=== PATIENT | male | born 1975 | race Caucasian/White ===

== ENCOUNTER 2020-05-05 13:12 | Day surgery (SDC) | payer BC, MEDICAID, SELFPAY ==
[2020-05-05] VITALS (8 sets, daily range): BP systolic 120–153; BP diastolic 61–87; PULSE 61–75; RESP 16; TEMP 36.3–36.6; O2SAT 96–99; BMI 51.8
[2020-05-05] MEDS: Lactated Ringers 1,000 ML 100 ML IV (13:44)
[2020-05-05 13:56] LABS: Bedside Glucose 107 mg/dL (70-110)
--- NOTE | 2020-05-05 14:02 | HP.PCM_ITS ---
History and Physical Date of Admission: 05/05/20 HISTORY AND PHYSICAL ? Jeremy Lopez 1975 ? ? REFERRING PHYSICIAN: Kate Serrano (Latasha), MANAGER [employer]ATIONAL.* ? CHIEF COMPLAINT: No chief complaint on file. ? HPI: The patient is a 44 year old male presents with complaint of rectal bleeding and diarrhea. He states that he has had bright red blood - rectal bleeding - for over 20 years. However, more recently in past several weeks, it has become increased in frequency and amount. He denies having hard stools. He usually notes loose stools. He does admit to straining - feels like that he has incomplete emptying of his rectum and therefore strains to empty it. He denies prolonged sitting on the toilet. He also notes occasional lower abdominal cramping pain. He states that he had a colonoscopy in the , does not know the results, except that he was told he had a fissure He notes no colon cancer the family. ? ? PAST MEDICAL HISTORY ? Anxiety ? ? CSA (central sleep apnea) ? ? [facility] ? Diabetes (HCC) ? ? LUCIA (obstructive sleep apnea) ? ? [facility] ? PAST SURGICAL HISTORY ? NONE ? Current Outpatient Medications ? omeprazole (PRILOSEC) 20 mg capsule Take 1 capsule by mouth daily before breakfast. 1/2 hr before meal. ? buPROPion XL (WELLBUTRIN XL) 300 mg 24 hr tablet Take 1 tablet by mouth once daily. ? metFORMIN ER (GLUCOPHAGE XR) 500 mg 24 hr tablet Take 4 tablets by mouth daily with dinner. ? Tadalafil (CIALIS) 20 mg tab(s) Take 1 tablet by mouth as needed. ? dulaglutide (TRULICITY) 1.5 mg/0.5 mL Inject 1.5 mg subcutaneously one time a week. Inject once per week. Discard Pen After ? blood sugar diagnostic (BLOOD GLUCOSE TEST) test strip Test blood sugar(s) three times daily. Dx: Type 2 DM - Uncontrolled E11.65 Insulin: No ? lisinopril 2.5 mg tablet Take 1 tablet by mouth once daily. ? sertraline (ZOLOFT) 50 mg tablet Take 1 tablet by mouth once daily. Take 1/2 tab once a day orally for one week then 1 tab once a day ? BIPAP 1 Device by MISCELLANEOUS route daily at bedtime. 14 / 8 CM H2O with back up rate 12, humidification, with a 20 min ramp, chin strap, suitable mask for pt preference. Lifetime supplies. G47.33 LUCIA ? Lancets lancets Test blood sugar(s) bid times daily. Dx: Type 2 DM - Uncontrolled E11.65 Insulin: No ? ? ALLERGIES: Bees, Effexor [Venlafaxine Hcl], and Toradol [Ketorolac Tromethamine] ? PERSONAL HISTORY: Social History Tobacco Use ? Smoking status: Never Smoker ? Smokeless tobacco: Never Used ? Tobacco comment: smokes Substance Use Topics ? Alcohol use: No ? Drug use: No ? FAMILY HISTORY Problem Relation Age of Onset ? Diabetes Mother ? ? Hypertension Mother ? ? Diabetes Father ? ? Hypertension Father ? ? ? REVIEW OF SYSTEMS: General - denies fevers, denies anorexia, denies weight loss Cardiovascular - denies chest pain, denies history of [place] Pulmonary - has shortness of breath with exertion, denies coughing up blood Gastrointestinal - see HPI Neurological - denies seizures, denies chronic numbness/weakness of extremities Genitourinary - denies burning with urination, denies blood in urine Hematological - denies spontaneous/prolonged bleeding Skin - denies nonhealing skin wounds Musculoskeletal - no new muscle/bone pain Endocrine - has diabetes, no thyroid problems Psychological ? denies hallucinations ? PHYSICAL EXAMINATION: General: The patient is 44 year old male, well nourished, well hydrated in no acute distress. The patient is oriented to time, place, and person. VITALS: Pulse 98, temperature 36.9 ?C (98.5 ?F), Ht: 5'7 weight (!) 154.9 kg (341 lb 9.6 oz), SpO2 100 %. Body mass index is 51.95 kg/m?. ? Head ? Normocephalic. EOM intact with sclera clear and no icterus noted. Mouth with mucus membranes moist. Neck - supple with no jugular venous distention noted. Trachea is midline. Lungs ? clear to auscultation. Normal breath sounds. No rales/rhonchi/wheezing noted. No labored breathing noted, such as retractions. No cough heard. Heart ? normal S1 and S2 auscultated. No rubs/clicks/murmurs noted. Regular rate. Abdomen ? soft and benign. Normal bowel sounds. No abdominal bruits noted. Difficult to determine if any masses or organomegaly due to body habitus. Extremities ? no calf tenderness noted. No pitting edema noted. Skin ? normal skin integrity. Neurological ? gait normal, no focal deficits noted. Psych ? calm and appropriate ? ? IMPRESSION: rectal bleeding and diarrhea ? PLAN: I have discussed the above with the patient. I have discussed the above with the patient. I have offered colonoscopy, possible biopsies I have explained the procedure to the patient. I have counseled the patient as to the risks of the procedure, including but not limited to: infection, bleeding, injury to any intrabdominal organs such as liver/spleen, perforation of the GI tract, inability to complete the procedure, complications of anesthesia, etc. ? the patient understands. ? The patient was offered a surgery/procedure. The provider and patient have discussed in detail the risk of exposure to and/or potential harm posed by the COVID-19 virus with having a surgery/procedure at this time versus the risk of? delaying the surgery/procedure. It is not possible to know either the risk of delaying the surgery or procedure or chance of getting an infection with perfect accuracy, but a joint decision was made between the patient and the provider ?to proceed at this time with the scheduled surgery/procedure. ? The patient wishes to proceed. I have answered all questions to the patient?s satisfaction and the patient has no further questions. ? . Diagnoses: (K62.5) Rectal bleeding (primary encounter diagnosis) (R19.7) Diarrhea, unspecified type (E66.01) Morbid obesity (HCC) Return to Clinic: The patient is instructed to follow-up with me after the procedure as per needed. ? Kaity Castorena MD
--- NOTE | 2020-05-05 14:30 | COLBX_PTH ---
PATIENT: LOUISA AMOR LOC: EN U#:[id number] AGE/SX: 44/M ROOM: RE05/05/[address]: Dr. Kaity Castorena MD : 1975 BED: DIS: 05/05/2020 SPEC #: [id number] RECD: 05/05/20 15:13 STATUS: BETTYE REQ #: [id number] VÍCTOR: 05/05/20 14:[address]: Kaity Castorena DEPT: SURGICAL PATHOLOGY RECD BY: Wendy Page ENTERED: 05/08/20 08:35 SP TYPE: COLON BX OTHR DR: Dr. Ren Arce MD Tissues: A - COLON BIOPSY B - Rectum, NOS C - Rectum, NOS Procedures: Surgery Specimen Level IV HEADER OPERATION: Colonoscopy (MAC) PRE-OP DIAGNOSIS: Rectal bleeding and diarrhea TISSUE SUBMITTED: A - Random colonic biopsies, B - Rectal polyp, C - Proximal rectum mucosa biopsy MICROSCOPIC DIAGNOSIS A. Colon, random biopsy: Fragments of colonic mucosa, no pathologic diagnosis. B. Rectal polyp, biopsy: Fragments of tubular adenoma. Fragments of fecal material. C. Proximal rectal mucosa, biopsy: A fragment of colonic mucosa with focal acute colitis. See microscopic description and comment. SJ:roscoe 05/09/2020 COMMENT Correlation with clinical, endoscopic findings and appropriate follow up are necessary. This case has been reviewed in consultation with Dr. Romero who concurs with the above diagnosis. MICROSCOPIC DESCRIPTION Slides are reviewed. C. The specimen shows a fragment of colonic mucosa with prominent lymphoid aggregates and acute inflammatory infiltrates in the lamina propria, minimal glandular distortion and cryptitis. Crypt abscesses and granulomas are not seen. GROSS DESCRIPTION A - Received in fixative is one container labeled with the patient's name and designated random colonic biopsy. The specimen consists of multiple irregular fragments of light mcconnell soft tissue that in aggregate measure 1.5 x 1 x 0.1 cm. The specimen is totally submitted in one cassette. B - Received in fixative is one container labeled with the patient's name and designated rectal polyp. The specimen consists of two mcconnell-pink polyps measuring 0.7 x 0.7 x 0.4 cm and 0.7 x 0.7 x 0.4 cm. Also present in the container are multiple fragments of mcconnell soft tissue measuring in aggregate 1.5 x 0.5 x 0.1 cm. The entire specimen is submitted in one cassette. C - Received in fixative is one container labeled with the patient's name and designated proximal rectum mucosa. The specimen consists of one irregular fragment of light mcconnell soft tissue that measures 0.3 x 0.3 x 0.1 cm. The specimen is totally submitted in one cassette. / SJ:rg 05/08/20 TC:1 CPT: 86287 x3
--- NOTE | 2020-05-05 15:14 | OP.COLON_ITS ---
Patient Name: Jeremy Lopez Procedure Date: 05/05/2020 2:10 PM Date of : 1975 Age: 44 Procedure: Colonoscopy Indications: Clinically significant diarrhea of unexplained origin, Rectal bleeding Providers: Kaity Castorena MD Referring MD: Ren Arce Medicines: See the Anesthesia note for documentation of the administered medications Patient Profile: Refer to note in patient chart for documentation of history and physical. Last Colonoscopy: none. The patient's first colonoscopy is today. Complications: No immediate complications. Estimated blood loss: Minimal. Procedure: Pre-Anesthesia Assessment: - see anesthesia note After I obtained informed consent, the scope was passed under direct vision. Throughout the procedure, the patient's blood pressure, pulse, and oxygen saturations were monitored continuously. The Colonoscope was introduced through the anus and advanced to the cecum, identified by the appendiceal orifice, ileocecal valve and palpation. The colonoscopy was performed without difficulty. The patient tolerated the procedure well. The quality of the bowel preparation was poor, there was still retained fecal material. Therefore lavage and aspiration was done to clear the fecal material. This took some time. The gonzalez were cleared adequately. Scope In: 2:24:54 PM Scope Withdrawal Time 0 hours 26 minutes 5 seconds Scope Out: 2:58:01 PM Total Procedure Duration Time 0 hours 33 minutes 7 seconds Findings: The perianal and digital rectal examinations were normal. Two semi-pedunculated polyps were found in the proximal rectum. The polyps were 5 to 15 mm in size. These polyps were removed with a hot snare. Resection and retrieval were complete. Verification of patient identification for the specimen was done by the nurse. Estimated blood loss was minimal. A localized area of moderately hemorrhagic and nodular mucosa was found in the rectum. Biopsies were taken with a cold forceps for histology. Verification of patient identification for the specimen was done by the nurse. Estimated blood loss was minimal. Impression: - Two 5 to 15 mm polyps in the rectum, removed with a hot snare. Resected and retrieved. - Hemorrhagic and nodular mucosa in the rectum. Biopsied. Recommendation: - Discharge patient to home (ambulatory). - Resume previous diet. - Continue present medications. - Await pathology results. - Can contact my office for a televisit to discuss pathology results in 1-2 weeks - Repeat colonoscopy is recommended for surveillance. The colonoscopy date will be determined after pathology results from today's exam become available for review. Procedure Code(s): --- Professional --- 63529, Colonoscopy, flexible; with removal of tumor(s), polyp(s), or other lesion(s) by snare technique 46307, 59, Colonoscopy, flexible; with biopsy, single or multiple Diagnosis Code(s): --- Professional --- K62.1, Rectal polyp K62.5, Hemorrhage of anus and rectum K62.89, Other specified diseases of anus and rectum R19.7, Diarrhea, unspecified CPT copyright 2017 [employer]. All rights reserved. The codes documented in this report are preliminary and upon medical coder review may be revised to meet current compliance requirements. MD Kaity Bower MD 05/05/2020 3:14:21 PM This report has been signed electronically. Number of Addenda: 0 Note Initiated On: 05/05/2020 2:10 PM
--- NOTE | 2020-05-05 15:15 | OP.CCLET_ITS ---
05/05/2020 Ren Arce Re : Colonoscopy procedure for Jeremy Benton Claude This procedure was performed on Tuesday, May 05, 2020. My impressions and recommendations are as follows: Impressions : - Two 5 to 15 mm polyps in the rectum, removed with a hot snare. Resected and retrieved. - Hemorrhagic and nodular mucosa in the rectum. Biopsied. Recommendations : - Discharge patient to home (ambulatory). - Resume previous diet. - Continue present medications. - Await pathology results. - Can contact my office for a televisit to discuss pathology results in 1-2 weeks - Repeat colonoscopy is recommended for surveillance. The colonoscopy date will be determined after pathology results from today's exam become available for review. My findings are described in the full procedure note, which is enclosed. If I can be of further assistance, please feel free to contact me at Doctor phone number(s): , Work: . Sincerely, MD Kaity Bower MD 05/05/2020 3:14:21 PM This report has been signed electronically.
== END 2020-05-05 16:13 | disposition home or self-care (01) ==
LOC: EN 13:13 → AC 13:13
PROVIDERS: PCP Family Medicine; Referring Provider Family Medicine; Visit Provider Surgery
PROC: 0DJD8ZZ Inspection of Lower Intestinal Tract, Via Natural or Artificial Opening Endoscopic (ICD-10-PCS; CPT 45378; principal; 2020-05-05 14:25)
DX: D12.8 Benign neoplasm of rectum (principal); R19.7 Diarrhea, unspecified; E11.65 Type 2 diabetes mellitus with hyperglycemia; G47.33 Obstructive sleep apnea (adult) (pediatric); G47.31 Primary central sleep apnea; Z20.822 Contact with and (suspected) exposure to COVID-19; K21.9 Gastro-esophageal reflux disease without esophagitis; F32.9 Major depressive disorder, single episode, unspecified; F41.9 Anxiety disorder, unspecified; E66.01 Morbid (severe) obesity due to excess calories; Z68.43 Body mass index [BMI] 50.0-59.9, adult; Z79.84 Long term (current) use of oral hypoglycemic drugs; Z79.899 Other long term (current) drug therapy
CPT/HCPCS: 45380; 45385; 82962; 87426; 88305; C9803; J7120; J2405

== ENCOUNTER 2022-01-05 01:14 | Emergency (ER) | payer MEDICAID, SELFPAY ==
[2022-01-05 01:14] VITALS: BP 141/73; PULSE 88; RESP 16; TEMP 36.9; O2SAT 94; BMI 48.6
--- NOTE | 2022-01-05 02:43 | EX.ED.DYSGE1 ---
HPI History of Present Illness Chief Complaint: Itching Narrative Narrative: Patient is a 46-year-old male who states about 2 to 3 weeks ago he began getting a pruritic rash across his body. He states he went to an urgent care and was placed on prednisone and this resolved the rash. He states it was gone for approximately 1 week and then began returning yesterday. He states he cannot sleep secondary to the persistent itch. He denies any new exposure and states no one else at home has the rash. He denies any trouble breathing or swallowing but secondary to the return of the rash and his inability to sleep from it he presents for evaluation [facility] Home Medications metformin 500 mg tablet 2,000 mg PO DAILY 08/30/16 [History Last Taken Unknown] bupropion HCl 300 mg 24 hr tablet, extended release 300 mg PO DAILY 04/26/20 [History Last Taken Unknown] dulaglutide 1.5 mg/0.5 mL subcutaneous pen injector 1.5 mg SQ [place] 04/26/20 [History Last Taken Unknown] prednisone 10 mg tablet 10 mg PO DAILY #45 tabs 01/05/22 [Rx Last Taken Unknown] prednisone 10 mg tablet 10 mg PO DAILY #45 tabs 01/05/22 [Rx Last Taken Unknown] Allergy/AdvReac Type Severity Reaction Status Date / Time venom-honey bee Allergy Severe Anaphylaxis Verified 09/21/21 14:32 ketorolac tromethamine AdvReac Other Verified 04/26/20 12:06 [From Toradol] Social History Smoking Status: Never smoker [facility] ED Constitutional Constitutional ED: Denies chills or fever(s) Eyes Eyes: Denies change in vision ENT ENT ED: Denies sore throat Cardiovascular Cardiovascular: Denies chest pain Respiratory/Chest Respiratory/Chest: Denies cough or dyspnea Gastrointestinal Gastrointestinal: Denies abdominal pain, diarrhea, nausea or vomiting Genitourinary Genitourinary ED: Denies dysuria Musculoskeletal Musculoskeletal: Denies myalgias Integumentary Reports rash Neurologic Neurologic: Denies headache(s) Hematologic/Lymphatic Hematologic/Lymphatic: Denies easy bleeding or easy bruising EXAM Physical Exam Const Vital Signs: 01/05/22 01:14 01/05/22 03:00 Temperature 98.4 F Temperature Source Temporal Pulse Rate 88 87 Respiratory Rate 16 18 Blood Pressure 141/73 H Blood Pressure Mean 95 Pulse Ox 94 100 Oxygen Delivery Method Room Air Positive well nourished and well developed General Appearance ED: well developed HEENT Reports moist mucous membranes HEENT Narrative: No tongue or lip swelling no oral lesions no airway edema or compromise Eyes PERRL and EOMs intact bilaterally Neck supple Resp normal respiratory effort and clear to auscultation bilaterally Cardio regular rate and regular rhythm Extremity normal to inspection Neuro oriented x3 and CN's II-XII intact bilaterally Sensorium / Orientation: alert Psych mental status grossly normal Skin Skin Narrative: Patient has erythematous blanchable urticaria and vesicular lesions to his legs arms chest back and head most consistent with systemic allergic reaction. No involvement of the palms and soles. No secondary changes to suggest infection MDM MDM MDM Narrative Medical decision making narrative: Patient presented to the ER in no acute respiratory distress. He denied any new known exposures but he is only 1 at the house with the rash and it has been recurrent in nature. I do not feel this is an infectious rash for more an inflammatory rash and that he is most likely being reexposed to it over the allergic trigger is. He was advised to go through his belongings at home to search for possible exposure but at this time he will be given a 15-day course of prednisone taper to control symptoms but as he has no signs of distress or systemic infection can be discharged home. Discharge Plan Triage Chief Complaint: Itching ED Provider: Zurdo Bolton Dx/Rx/DC Orders Clinical Impression: Allergic reaction Instructions: Allergy Overview Prescriptions: New prednisone 10 mg tablet 10 mg PO DAILY Qty: 45 0RF Rx Instructions: 5 pills by mouth days 1 through 3 4 pills by mouth days 4 through 6 3 pills by mouth days 7 through 9 2 pills by mouth days 10 through 12 1 pill by mouth days 13 through 15 prednisone 10 mg tablet 10 mg PO DAILY Qty: 45 0RF Rx Instructions: 5 pills by mouth days 1 through 3 4 pills by mouth days 4 through 6 3 pills by mouth days 7 through 9 2 pills by mouth days 10 through 12 1 pill by mouth days through 15 No Action metformin 500 MG tablet 2,000 mg PO DAILY Label Comments: Take 1 tablet by mouth daily with breakfast.. bupropion HCl 300 MG tablet extended release 24 hr 300 mg PO DAILY dulaglutide 1.5 MG/0.5 ML pen injector 1.5 mg SQ [place] Primary Care Provider: Ren Arce Referrals: Ren Arce MD [Primary Care Provider] - Activity Restrictions/Additional Instructions: Please talk to your family doctor about a preschool teacher aide referral as I feel your rash is allergic/inflammatory in nature. If you have any further concerns or difficulty breathing please return to the ER for repeat evaluation Disposition Disposition: Home, Self Care Discharge Date/Time: 01/05/22 03:29
[2022-01-05] MEDS: Triamcinolone Acetonide 40 MG/ML Vial 80 MG IM (02:53)
[2022-01-05 03:00] VITALS: PULSE 87; RESP 18; O2SAT 100
== END 2022-01-05 03:29 | disposition home or self-care (01) ==
PROVIDERS: Emergency Provider Emergency Medicine; PCP Family Medicine; Visit Provider Emergency Medicine
DX: T78.40XA Allergy, unspecified, initial encounter (principal); Z79.84 Long term (current) use of oral hypoglycemic drugs; Z79.899 Other long term (current) drug therapy
CPT/HCPCS: 96372; 99283

== ENCOUNTER 2022-12-20 18:20 | Emergency (ER) | payer MEDICAID, SELFPAY ==
[2022-12-20 18:21] VITALS: BP 144/85; PULSE 88; RESP 18; TEMP 35.8; O2SAT 97; BMI 47.8
[2022-12-20 18:45] LABS: Bacteria 0 SEEN /hpf (None Seen); Mucous, Urine 0 SEEN /hpf (<or=2+); Squamous Epithelial Cells - UA 0 SEEN /hpf (0-5)
[2022-12-20 18:46] LABS: Absolute Lymphocyte Count 3.08 X10^3/uL (0.83-4.51); Absolute Neutrophil Count 6.4 X10^3/uL (2.0-7.7); Basophil# 0.11 X10^3/uL; Eosinophil# 0.51 X10^3/uL; Eosinophils% 4.7 % (0-5); Hematocrit 45.3 % (40-54); Hemoglobin 15.5 g/dL (13.0-16.5); Lymphocyte # 3.08 X10^3/ul (0.83-4.51); Lymphocyte % 28.1 % (19-41); Mean Corp Hgb Conc 34.2 g/dL (32-36); Mean Corpuscular Hgb 28.9 pg (27.0-32.0); Mean Corpuscular Volume 84.5 fL (80-94); Monocyte# 0.85 X10^3/uL; Monocyte% 7.8 % (0-10); NRBC Flagged by Analyzer 0 % (0-5); Neutrophil # 6.35 X10^3/uL (2.7-7.7); Neutrophil % 57.9 % (47-70); Platelet Count 291 K/mm3 (150-450); RBC Distribution Width CV 12.4 % (11.6-14.6); RBC Distribution Width SD 37.8 fl (35.1-43.9); Red Blood Count 5.36 M/mm3 (4.6-6.2)
[2022-12-20 18:47] LABS: Color, Urine Yellow (Yellow); Glucose, Dipstick Normal (Normal); Ketone-Dipstick Negative (Negative); Leukocyte Esterase-Dipstick 100 /ul (Negative); Nitrite-Dipstick Negative (Negative); Occult Blood-Urine 10 /ul (Negative); Protein-Dipstick 15 mg/dl (Negative); Urine Bilirubin Dipstick Negative (Negative); Urine Clarity Clear (Clear); Urine Urobilinogen Normal (Normal)
[2022-12-20 19:04] LABS: AST(SGOT) 17 U/L (15-37); Alanine Aminotransfer ALT/SGPT 30 U/L (16-61); Albumin, Serum 3.7 g/dL (3.2-5.0); Alkaline Phosphatase 59 U/L (45-117); Anion Gap 6 (5-15); BUN 18 mg/dL (7-18); BUN/Creat Ratio 16.5 RATIO (10-20); Calcium,Total 9.1 mg/dL (8.5-10.1); Chloride 105 mmol/L (98-107); Creatinine, Serum 1.09 mg/dL (0.70-1.30); EST Glomerular Filtration Rate 77 mL/min (>60); Est Glom Filt Rate - Afr Amer 93 mL/min (>60); Estimated Creatinine Clearance 80.18 ml/min; Globulin 3.6 g/dL (2.2-4.2); Glucose 119 mg/dL (74-106); Lipase 22 U/L (13-75); Potassium 3.8 mmol/L (3.5-5.1); Protein, Total 7.3 g/dL (6.4-8.2); Sodium Level 136 mmol/L (136-145)
--- NOTE | 2022-12-20 19:16 | CT_ITS ---
INDICATION: llq abdominal pain EXAMINATION: CT Abdomen And Pelvis W/ Contrast Injection TECHNIQUE: Helically acquired images were obtained of the abdomen and pelvis after IV contrast. A radiation dose optimization technique was used for this scan. IV Contrast dosage and agent: IV 100mL [id number]-[id number] Oral contrast: None. COMPARISON: None. FINDINGS: Visualized lung bases: Unremarkable Liver: Unremarkable Gallbladder: Unremarkable Spleen: Unremarkable Pancreas: Unremarkable Adrenal Glands: Unremarkable Kidneys: Unremarkable Vasculature: Unremarkable GI Tract: Mild fat stranding surrounding a short segment of descending colon. No focal fluid collection or free air. Lymphadenopathy: None Peritoneum: No ascites. Bladder: Unremarkable Reproductive organs: Unremarkable Bones/Soft tissues: No suspicious osseous or soft tissue lesions CT/Abdomen/Pelvis W IV Cont ONLY IMPRESSION: Infectious versus inflammatory colitis. No focal fluid collection or free air. Electronically Signed: Martir Hernández MD at 20:50 EDT ,
[2022-12-20 19:18] LABS: Red Blood Cells-Urine 0-5 SEEN /hpf (0-5); White Blood Cells 5-10 SEEN /hpf (0-5)
[2022-12-20] MEDS: Morphine 4 MG/ML Syringe IV ×2 (19:45→21:59)
[2022-12-20] MEDS: Ondansetron 4 MG/2 ML Vial IV (19:45)
--- NOTE | 2022-12-20 21:53 | EDS_ITS ---
HPI HPI - GI History of Present Illness Chief Complaint: Abd Pain Narrative Narrative: 47-year-old male with left lower quad abdominal pain. He states it came on rather abruptly earlier today. He states that when he went to eat dinner tonight he did not have any warning and he vomited. Patient states he had problems with his left lower quadrant a long time. He states that popcorn usually gives him a lot of issues he has been eating popcorn this week. He has previously had a colonoscopy performed by Dr. Castorena and was told everything was good. Patient with no history of diverticulitis per se. He states sometimes he has these episodes that they treat himself. Patient had some bloody mucus in his stool today. No lightheadedness dizziness, shortness of breath. [facility] Medical History Diabetes Home Medications metformin 500 mg tablet 2,000 mg PO DAILY 08/30/16 [History Last Taken Unknown] bupropion HCl 300 mg 24 hr tablet, extended release 300 mg PO DAILY 04/26/20 [History Last Taken Unknown] dulaglutide 1.5 mg/0.5 mL subcutaneous pen injector 1.5 mg SQ [place] 04/26/20 [History Last Taken Unknown] amoxicillin 875 mg-potassium clavulanate 125 mg tablet 1 tab PO BID #24 tabs 12/20/22 [Rx Last Taken Unknown] hydrocodone-acetaminophen 5-325mg 5mg-325mg 1 tab PO Q6H PRN PRN Pain 3 days #10 TABLETS 12/20/22 [Rx Last Taken Unknown] lisinopril 2.5 mg tablet 2.5 mg PO DAILY 12/20/22 [History Last Taken Unknown] metformin 500 mg tablet,extended release 24 hr 2,000 mg PO DAILY 12/20/22 [History Last Taken Unknown] omeprazole 20 mg capsule,delayed release 20 mg PO DAILY 12/20/22 [History Last Taken Unknown] ondansetron 4 mg disintegrating tablet 4 mg PO Q8H PRN PRN Nausea #14 tabs 12/20/22 [Rx Last Taken Unknown] Allergy/AdvReac Type Severity Reaction Status Date / Time venom-honey bee Allergy Severe Anaphylaxis Verified 12/20/22 18:21 ketorolac tromethamine AdvReac Other Verified 12/20/22 18:21 [From Toradol] Family History Father Diabetes Surgical History no surgical history Social History household members: significant other and children current occupational status: employed Smoking Status: Never smoker ROS ROS ED Constitutional Constitutional ED: Denies chills, fever(s) or sweats Eyes Eyes: Denies blurry vision or change in vision ENT ENT ED: Denies ear pain or sore throat Cardiovascular Cardiovascular: Denies chest pain, palpitations or racing heartbeat Respiratory/Chest Respiratory/Chest: Denies cough, dyspnea or sputum Gastrointestinal Gastrointestinal: Reports abdominal pain, diarrhea and other Details: Blood in stool ; Denies constipation, nausea or vomiting Genitourinary Genitourinary ED: Denies dysuria, hematuria or urinary frequency Musculoskeletal Musculoskeletal: Denies arthralgias, myalgias or neck pain Integumentary Denies abscess, Abrasions or rash Neurologic Neurologic: Denies headache(s), paresthesias or weakness Psychiatric Psychiatric: Denies anxiety, depression, suicidal ideation or suicidal thoughts Endocrine Endocrinology: Denies polydipsia or polyuria EXAM Physical Exam Const Vital Signs: 12/20/22 18:21 Temperature 96.4 F L Temperature Source Temporal Pulse Rate 88 Respiratory Rate 18 Blood Pressure 144/85 H Blood Pressure Mean 104 Pulse Ox 97 Oxygen Delivery Method Room Air Positive well nourished General Appearance ED: NAD; Negative for pallor HEENT Reports moist mucous membranes normocephalic Eyes PERRL Resp normal respiratory effort Effort and Inspection: Negative for respiratory distress Cardio regular rate and regular rhythm GI Palpation: tender LLQ Neuro CN's II-XII intact bilaterally, moves all extremities and no sensory deficits noted Sensorium / Orientation: alert Motor Exam: strength 5/5 throughout Psych mental status grossly normal and thought process normal Skin General Skin Exam: Negative for jaundice or pallor MDM MDM MDM Narrative Medical decision making narrative: Patient presenting with left lower quadrant pain. Clinically he is presents like diverticulitis. Differential includes UTI, pyelonephritis, colitis, pancreatitis, kidney stone. CBC was obtained to assess white blood cell count, hemoglobin, platelets. CMP to assess liver function, renal function, electrolytes, glucose. Lipase to assess for pancreatitis. Urinalysis to assess for UTI. Patient medicated with morphine, Zofran. CBC shows normal white blood cell count 11.0. Hemoglobin stable at 15.5. Platelets are normal at 291. LFTs are normal. Lipase is normal. Renal function normal. Urinalysis negative. CT of the abdomen pelvis with IV contrast was obtained and is interpreted as inflammatory versus infectious colitis. Clinically since he presented like diverticulitis I will treat him with Augmentin. He is given [place] and Zofran for home. He is given a second dose of morphine in the ED. As far as the blood in stool he is not anemic. He is counseled this will likely clear up with antibiotics. He is given follow-up with GI. Impression: 1. Colitis 2. GI bleed stable 3. Nausea/vomiting Lab Data Labs: Laboratory Results - last 24 hr 12/20/22 12/20/22 18:36 18:40 WBC 11.0 RBC 5.36 Hgb 15.5 Hct 45.3 MCV 84.5 MCH 28.9 MCHC 34.2 RDW Std Deviation 37.8 RDW Coeff of José Manuel 12.4 Plt Count 291 MPV 9.0 Immature Gran % (Auto) 0.500 Neut % (Auto) 57.9 Lymph % (Auto) 28.1 Dickey % (Auto) 7.8 Eos % (Auto) 4.7 Baso % (Auto) 1.0 Absolute Neuts (auto) 6.4 Absolute Lymphs (auto) 3.08 Nucleated RBC % 0 Sodium 136 Potassium 3.8 Chloride 105 Carbon Dioxide 25.0 Anion Gap 6 BUN 18 Creatinine 1.09 Estim Creat Clear Calc 80.18 Est GFR (MDRD) Af Amer 93 Est GFR (MDRD) Non-Af 77 BUN/Creatinine Ratio 16.5 Glucose 119 H Calcium 9.1 Total Bilirubin 0.40 AST 17 ALT 30 Alkaline Phosphatase 59 Total Protein 7.3 Albumin 3.7 Globulin 3.6 Albumin/Globulin Ratio 1.0 Lipase 22 Urine Color Yellow Urine Clarity Clear Urine pH 5.0 Ur Specific [place] 1.020 Urine Protein 15 H Urine Glucose (UA) Normal Urine Ketones Negative Urine Occult Blood 10 H Urine Nitrite Negative Urine Bilirubin Negative Urine Urobilinogen Normal Ur Leukocyte Esterase 100 H Urine RBC 0-5 SEEN Urine WBC 5-10 SEEN Ur Squamous Epith Cells 0 SEEN Urine Bacteria 0 SEEN Urine Mucus 0 SEEN Radiography Diagnostic Testing: Clinical Impression(s) from Imaging Studies Abdomen/Pelvis CT 12/20/22 19:16 IMPRESSION: Infectious versus inflammatory colitis. No focal fluid collection or free air. Electronically Signed: Martir Hernández MD at 20:50 EDT , Discharge Plan Triage Chief Complaint: Abd Pain ED Provider: Arthur Clements Dx/Rx/DC Orders Instructions: ED Diverticulitis Prescriptions: New amoxicillin-pot clavulanate 875-125 mg tablet 1 tab PO BID Qty: 24 0RF ondansetron 4 mg tablet,disintegrating 4 mg PO Q8H PRN PRN (Reason: Nausea) Qty: 14 0RF hydrocodone-acetaminophen 5-325 mg tablet 1 tab PO Q6H PRN PRN (Reason: Pain) 3 Days Qty: 10 0RF No Action metformin 500 MG tablet 2,000 mg PO DAILY Patient Comments: Take 1 tablet by mouth daily with breakfast.. bupropion HCl 300 MG tablet extended release 24 hr 300 mg PO DAILY dulaglutide 1.5 MG/0.5 ML pen injector 1.5 mg SQ [place] omeprazole 20 mg capsule,delayed release(DR/EC) 20 mg PO DAILY metformin 500 mg tablet extended release 24 hr 2,000 mg PO DAILY lisinopril 2.5 mg tablet 2.5 mg PO DAILY Primary Care Provider: Ren Arce Referrals: Francisco Perea DO [Med Staff - Active Staff] - 3-5 Days Ren Arce MD [Primary Care Provider] - Disposition Disposition: Home, Self Care
[2022-12-20] MEDS: Amox/Clavulanate 875 MG Tablet PO (21:56)
[2022-12-20 22:04] VITALS: RESP 18
== END 2022-12-20 23:06 | disposition home or self-care (01) ==
PROVIDERS: Emergency Provider Student in an Organized Health Care Education/Training Program; PCP Family Medicine; Visit Provider Student in an Organized Health Care Education/Training Program
DX: K52.9 Noninfective gastroenteritis and colitis, unspecified (principal); E11.9 Type 2 diabetes mellitus without complications; Z79.84 Long term (current) use of oral hypoglycemic drugs; Z79.899 Other long term (current) drug therapy
CPT/HCPCS: 74177; 80053; 81001; 83690; 85025; 96374; 96375; 96376; 99283; J7030; Q9967; A4216; J2405

== ENCOUNTER 2024-06-23 16:56 | Observation (INO) | payer MEDICAID, SELFPAY ==
[2024-06-23] VITALS (7 sets, daily range): BP systolic 122–157; BP diastolic 73–90; PULSE 80–97; RESP 15–20; TEMP 36.6–37.2; O2SAT 92–98; BMI 51.6
--- NOTE | 2024-06-23 18:06 | EX.ED.DYSGE1 ---
HPI History of Present Illness Chief Complaint: Abd Pain Narrative Narrative: Chief complaint and HPI: Left lower quadrant abdominal pain. 48-year-old male with past medical history of diverticulitis, DM2 presents for evaluation of left lower quadrant abdominal pain. Patient states he has history of diverticulitis in the past in which he was prescribed antibiotics and it resolved. States that he had associated bright red blood with this episode as well. Patient states several days ago he began having right lower quadrant abdominal pain with intermittent episodes of bright red blood per rectum. States it feels similar to his previous diverticulitis flare. Went to urgent care and they recommended him come to the emergency department. Has been eating and drinking. Denies any fever, chills, shortness of breath, chest pain, nausea, vomiting, diarrhea, constipation. On chart review, patient had a previous colonoscopy in 2020 that showed polyps and hemorrhagic nodule varicosed in the rectum. Patient states that he has not had a colonoscopy since. Review of systems: See HPI Medications: As listed on the chart Allergies: As listed on the chart PFSH: Per chart Vital signs: As listed on the chart. Reviewed. Physical exam: Gen: A&O x3, NAD Head: Normocephalic, atraumatic Eyes: No sclera icterus, conjunctiva clear ENT: Moist mucous membranes Neck: Trachea midline, No JVD CV: RRR, no murmurs, no peripheral edema Resp: Lungs CTA BL, no w/r/c GI: Abd soft, non-distended, tender to patient in the left lower quadrant, no rebound or rigidity Rectal: Normal external examination. No evidence of hemorrhoids or fissures. Normal tone and sensation. No masses, fluctuance, or tenderness. No pain out of proportion. + Bright red blood on the gloved finger : No CVA tenderness Musc: Full ROM, no deformity Skin: Warm, dry Neuro: Alert, oriented, grossly intact, sensation intact Psych: Cooperative, appropriate mood and affect [facility] Medical History (Updated 06/24/24 @ 03:[address] Teo Abraham, DO) Depression HTN (hypertension) Diabetes Home Medications ?Medication ?Instructions ?Recorded ?Last Taken ?Type bupropion HCl 300 mg 24 hr tablet, 300 mg PO DAILY 04/26/20 Unknown History extended release lisinopril 2.5 mg tablet 10 mg PO DAILY htn 12/20/22 Unknown History metformin 500 mg tablet,extended 2,000 mg PO DAILY 12/20/22 Unknown History release 24 hr omeprazole 20 mg capsule,delayed 20 mg PO DAILY 12/20/22 Unknown History release dulaglutide 4.5 mg/0.5 mL 4.5 mg subcut .week dm 06/23/24 06/19/24 History subcutaneous pen injector (Trulicity) Allergy/AdvReac Type Severity Reaction Status Date / Time venom-honey bee Allergy Severe Anaphylaxis Verified 06/23/24 16:57 ketorolac tromethamine (From AdvReac Other Verified 06/23/24 16:57 Toradol) Family History Father Diabetes Social History household members: significant other and children current occupational status: employed Smoking Status: Never smoker EXAM Physical Exam Const Vital Signs: 06/23/24 16:57 06/23/24 18:09 06/23/24 19:00 Temperature 98.9 F 98.1 F 98.4 F Temperature Source Oral Temporal Oral Pulse Rate 97 89 87 Respiratory Rate 18 18 16 Blood Pressure 157/90 H 156/73 H 155/74 H Blood Pressure Mean 112 100 101 Blood Pressure Source Blood Pressure Position Blood Pressure Location Pulse Ox 96 98 98 Oxygen Delivery Method Room Air Room Air Room Air 06/23/24 20:00 06/23/24 21:00 06/23/24 21:45 Temperature 98.4 F 98.5 F 98.4 F Temperature Source Oral Oral Pulse Rate 83 88 80 Respiratory Rate 15 15 16 Blood Pressure 151/89 H 122/74 H 122/74 H Blood Pressure Mean 109 90 90 Blood Pressure Source Blood Pressure Position Blood Pressure Location Pulse Ox 98 95 95 Oxygen Delivery Method Room Air Room Air 06/23/24 23:45 Temperature 97.8 F Temperature Source Oral Pulse Rate 87 Respiratory Rate 20 H Blood Pressure 141/78 H Blood Pressure Mean 99 Blood Pressure Source Monitor Blood Pressure Position Semi-Fowlers Blood Pressure Location Left Arm Pulse Ox 92 Oxygen Delivery Method Room Air MDM MDM MDM Narrative Medical decision making narrative: 48-year-old male with past medical history of diverticulitis, DM2 presents for evaluation of left lower quadrant abdominal pain. Associated symptom is occasional episodes of bright red blood per rectum. Patient states this feels similar to his previous diverticulitis flare. Differential diagnosis includes but is not limited to diverticulitis, diverticulosis, electrolyte abnormality, anemia, nephrolithiasis. NS bolus, Zofran, morphine ordered for symptoms. Abdominal pain workup ordered including CT abdomen and pelvis. CBC unremarkable without leukocytosis or anemia. CMP unremarkable except for hyperglycemia, patient is a known diabetic. Lactic acid elevated at 2.3. NS bolus running. Will obtain repeat lactic. Lipase unremarkable. UA negative for UTI. Blood occult positive. CT abdomen pelvis without any acute intra-abdominal pathology. Repeat lactic acid unremarkable. On reexamination, patient is still endorsing intractable left lower quadrant abdominal pain. More pain medicine ordered. Given patient's left lower quadrant pain with bright red blood per rectum, GI physician Dr. Perea was consulted and patient was discussed. Plan is for admission with likely colonoscopy in the morning. Spoke with the patient who confirmed understanding and is agreement to the plan. I spoke to the hospitalist physician who accepted admission. Impression: 1. Lower GI bleed 2. Intractable left lower quadrant abdominal pain 3. Hyperglycemia with history of diabetes Lab Data Labs: Laboratory Results - last 24 hr 06/23/24 06/23/24 06/23/24 18:00 18:09 18:43 WBC 9.9 RBC 5.40 Hgb 16.0 Hct 45.2 MCV 83.7 MCH 29.6 MCHC 35.4 RDW Std Deviation 39.0 RDW Coeff of José Manuel 12.9 Plt Count 245 MPV 9.0 Immature Gran % (Auto) 0.500 Neut % (Auto) 55.0 Lymph % (Auto) 31.1 Barron % (Auto) 8.9 Eos % (Auto) 3.4 Baso % (Auto) 1.1 H Absolute Neuts (auto) 5.4 Absolute Lymphs (auto) 3.07 Nucleated RBC % 0 Sodium 136 Potassium 3.6 Chloride 99 Carbon Dioxide 22.8 Anion Gap 14 BUN 12 Creatinine 1.11 Estim Creat Clear Calc 113.29 Est GFR (MDRD) Non-Af 81 BUN/Creatinine Ratio 10.9 Glucose 172 H Lactic Acid 2.3 H* Calcium 9.5 Total Bilirubin 0.39 AST 28 ALT 33 Alkaline Phosphatase 55 Total Protein 6.9 Albumin 4.0 Globulin 2.9 Albumin/Globulin Ratio 1.4 Lipase 23 Urine Color Yellow Urine Clarity Clear Urine pH 6.0 Ur Specific [place] 1.010 Urine Protein TNP Urine Glucose (UA) Normal Urine Ketones Negative Urine Occult Blood Negative Urine Nitrite Negative Urine Bilirubin Negative Urine Urobilinogen Normal Ur Leukocyte Esterase Negative Urine RBC 0 SEEN Urine WBC 0 SEEN Ur Squamous Epith Cells 0 SEEN Urine Bacteria 0 SEEN Urine Mucus 0 SEEN U Random Total Protein < 6.0 Blood Type Antibody Screen 06/23/24 06/23/24 20:39 23:59 WBC RBC Hgb Hct MCV MCH MCHC RDW Std Deviation RDW Coeff of José Manuel Plt Count MPV Immature Gran % (Auto) Neut % (Auto) Lymph % (Auto) Barron % (Auto) Eos % (Auto) Baso % (Auto) Absolute Neuts (auto) Absolute Lymphs (auto) Nucleated RBC % Sodium Potassium Chloride Carbon Dioxide Anion Gap BUN Creatinine Estim Creat Clear Calc Est GFR (MDRD) Non-Af BUN/Creatinine Ratio Glucose Lactic Acid 1.3 1.5 Calcium Total Bilirubin AST ALT Alkaline Phosphatase Total Protein Albumin Globulin Albumin/Globulin Ratio Lipase Urine Color Urine Clarity Urine pH Ur Specific [place] Rose Urine Protein Urine Glucose (UA) Urine Ketones Urine Occult Blood Urine Nitrite Urine Bilirubin Urine Urobilinogen Ur Leukocyte Esterase Urine RBC Urine WBC Ur Squamous Epith Cells Urine Bacteria Urine Mucus U Random Total Protein Blood Type O NEGATIVE Antibody Screen NEGATIVE Radiography Diagnostic Testing: Clinical Impression(s) from Imaging Studies Abdomen/Pelvis CT 06/23/24 18:50 IMPRESSION: No acute process. Reading Location: [facility] Discharge Plan Disposition Disposition: Acute Care Hospital [facility] Discharge Date/Time: 06/23/24 23:24
[2024-06-23] MEDS: 0.9% Normal Saline (1000mL) 1,000 ML 999 ML IV (18:07)
[2024-06-23] MEDS: Morphine 4 MG/ML Syringe IV (18:07)
[2024-06-23] MEDS: Ondansetron 4 MG/2 ML Vial IV (18:08)
[2024-06-23 18:10] LABS: Absolute Lymphocyte Count 3.07 X10^3/uL (0.83-4.51); Absolute Neutrophil Count 5.4 X10^3/uL (2.0-7.7); Basophil# 0.11 X10^3/uL; Basophil% 1.1 % (0-1); Eosinophil# 0.34 X10^3/uL; Eosinophils% 3.4 % (0-5); Hematocrit 45.2 % (40-54); Lymphocyte # 3.07 X10^3/ul (0.83-4.51); Lymphocyte % 31.1 % (19-41); Mean Corp Hgb Conc 35.4 g/dL (32-36); Mean Corpuscular Hgb 29.6 pg (27.0-32.0); Mean Corpuscular Volume 83.7 fL (80-94); Monocyte# 0.88 X10^3/uL; Monocyte% 8.9 % (0-10); NRBC Flagged by Analyzer 0 % (0-5); Neutrophil # 5.43 X10^3/uL (2.7-7.7); Platelet Count 245 K/mm3 (150-450); RBC Distribution Width CV 12.9 % (11.6-14.6); White Blood Count 9.9 K/mm3 (4.4-11.0)
[2024-06-23 18:30] LABS: ALB/GLOB Ratio 1.4 RATIO (0.9-2.4); AST(SGOT) 28 U/L (<=37); Alanine Aminotransfer ALT/SGPT 33 U/L (<=46); Alkaline Phosphatase 55 U/L (40-129); Anion Gap 14 (5-15); BUN 12 mg/dL (4-19); BUN/Creat Ratio 10.9 RATIO (10-20); Calcium,Total 9.5 mg/dL (7.6-11.0); Carbon Dioxide 22.8 mmol/L (21.0-32.0); Chloride 99 mmol/L (98-108); Creatinine, Serum 1.11 mg/dL (0.70-1.20); EST Glomerular Filtration Rate 81 (>60); Estimated Creatinine Clearance 113.29 ml/min (50-250); Globulin 2.9 g/dL (2.2-4.2); Glucose 172 mg/dL (70-99); Lipase 23 U/L (13-75); Potassium 3.6 mmol/L (3.3-5.1); Protein, Total 6.9 g/dL (5.9-8.4); Sodium Level 136 mmol/L (133-145); Total Bilirubin 0.39 mg/dL (0.00-1.30)
[2024-06-23 18:50] LABS: Bacteria 0 SEEN /hpf (None Seen); Mucous, Urine 0 SEEN /hpf (<or=2+); Red Blood Cells-Urine 0 SEEN /hpf (0-5); Squamous Epithelial Cells - UA 0 SEEN /hpf (0-5); White Blood Cells 0 SEEN /hpf (0-5)
--- NOTE | 2024-06-23 18:50 | CT_ITS ---
PROCEDURE: ABDOMEN/PELVIS W IV CONT ONLY 06/23/2024 REASON FOR EXAM: RIGHT LOWER QUADRANT ABDOMINAL PAIN TECHNIQUE: Abdomen and pelvis CT with intravenous contrast. Coronal and Sagittal reconstruction series were provided. One or more dose reduction techniques were used (e.g., Automated exposure control, adjustment of the mA and/or kV according to patient size, use of iterative reconstruction technique. COMPARISON: None FINDINGS: No acute findings in the lung bases. Liver, spleen, pancreas and adrenal glands are intact. Gallbladder is satisfactory. No significant biliary ductal dilation. Kidneys enhance symmetrically. No suspicious renal mass, calculi or hydronephrosis. Urinary bladder is within normal limits. No bowel obstruction, focal bowel wall thickening or significant perienteric inflammation. Normal appendix. No pelvic free fluid. No free air. No abdominal aortic aneurysm or suspicious adenopathy. Superficial soft tissues are within normal limits. No acute osseous abnormality. Bilateral pars defects at L5. CT/Abdomen/Pelvis W IV Cont ONLY IMPRESSION: No acute process. Reading Location: [facility]
[2024-06-23 19:17] LABS: Color, Urine Yellow (Yellow); Glucose, Dipstick Normal (Normal); Ketone-Dipstick Negative (Negative); Leukocyte Esterase-Dipstick Negative /ul (Negative); Nitrite-Dipstick Negative (Negative); Occult Blood-Urine Negative /ul (Negative); Urine Bilirubin Dipstick Negative (Negative); Urine Clarity Clear (Clear); Urine Urobilinogen Normal (Normal)
[2024-06-23 19:47] LABS: Protein, Urine (Random) < 6.0 mg/dL (0.0-12.0)
[2024-06-23 21:15] LABS: Lactic Acid 1.3 mmol/L (0.0-2.0)
--- NOTE | 2024-06-23 21:49 | PCM.HP.STD ---
[facility] - General General Date of Admission: 06/24/24 Date of Service: 06/23/24 Chief Complaint: LGIB with BRBPR and Abdominal Pain. HPI Narrative LOUISA LOPEZ, is a 48 M with a past medical history of essential hypertension; on lisinopril, morbid obesity; with BMI of 51.7 this admission on dulaglutide, DM-2; of unknown control on metformin, depression; on bupropion, GERD; on omeprazole, positive family history of colitis in his father, history of colonoscopy that revealed polyps and hemorrhagic nodules varicosed in the rectum (2020) and history of colitis and diverticulitis with associated LGIB with BRBPR (2022) who presents to [facility] ER complaining of LGIB with BRBPR and abdominal pain. Mr. Lopez reports his symptoms began approximately 1 week prior to admission with abdominal pain mainly focused in his Right lower quadrant similar to his previous flare of diverticulitis. He then went to a movie with his son and had popcorn and after this he noted an acute worsening of his symptoms with patient having bright red blood per rectum with patient reporting significant blood loss. He initially went to urgent care but they recommended he come to the emergency department for further evaluation and treatment. He denies repeat colonoscopy since 2020. There was no reported fever, chills, nausea, vomiting, diarrhea, constipation, chest pain, shortness of breath, headache or rash. In the ER he had a digital rectal exam that revealed bright red blood in the rectal vault with a CT scan of the abdomen and pelvis that was negative for acute pathologic changes but he was noted to have laboratory evidence of mild Lactic Acidosis of 2.3 mmol/L present on admission likely due adverse drug reaction to metformin. He was then admitted to the general medical floor for ongoing care for stay that is expected to extend beyond 2 midnights. [facility] Medical History (Updated 06/24/24 @ 03:[address] Teo Abraham, DO) Depression HTN (hypertension) Diabetes Home Medications ?Medication ?Instructions ?Recorded ?Last Taken ?Type bupropion HCl 300 mg 24 hr tablet, 300 mg PO DAILY 04/26/20 Unknown History extended release lisinopril 2.5 mg tablet 10 mg PO DAILY htn 12/20/22 Unknown History metformin 500 mg tablet,extended 2,000 mg PO DAILY 12/20/22 Unknown History release 24 hr omeprazole 20 mg capsule,delayed 20 mg PO DAILY 12/20/22 Unknown History release dulaglutide 4.5 mg/0.5 mL 4.5 mg subcut .week dm 06/23/24 06/19/24 History subcutaneous pen injector (Trulicity) Allergy/AdvReac Type Severity Reaction Status Date / Time venom-honey bee Allergy Severe Anaphylaxis Verified 06/23/24 16:57 ketorolac tromethamine (From AdvReac Other Verified 06/23/24 16:57 Toradol) Family History Father Diabetes Social History household members: significant other and children current occupational status: employed Smoking Status: Never smoker ROS ROS Narrative Review of Systems: Constitutional: Patient denies fever or chills. Eyes: Patient denies change in vision or discharge from eyes. ENT: Patient denies runny nose, sore throat or ear pain. Resp: Patient denies shortness of breath or cough. CV: Patient denies chest pain, palpitations, heart racing or lower extremity edema. GI: Patient admits to right lower quadrant abdominal pain with intermittent LGIB with BRBPR as per HPI. : Patient denies dysuria, hematuria urinary frequency. MSK: Patient denies arthralgias or myalgias. Skin: Patient denies rash, abscess, wounds or jaundice. Psych: Patient denies symptoms of uncontrolled depression or anxiety. Neuro: Patient denies headache, paresthesias or focal neurologic deficits. Allergy: Patient denies lip swelling, tongue swelling or urticaria. Hematology: Patient admits to LGIB with BRBPR and right lower quadrant pain as per HPI. Endocrinology: Patient denies polyuria, polydipsia, polyphagia or heat/cold intolerance. 14 point ROS otherwise negative save for positives noted above in HPI. Vital Signs Vital Signs Vital Signs: 06/23/24 16:57 06/23/24 18:09 06/23/24 19:00 Temperature 98.9 F 98.1 F 98.4 F Temperature Source Oral Temporal Oral Pulse Rate 97 89 87 Respiratory Rate 18 18 16 Blood Pressure 157/90 H 156/73 H 155/74 H Blood Pressure Mean 112 100 101 Pulse Ox 96 98 98 Oxygen Delivery Method Room Air Room Air Room Air 06/23/24 20:00 06/23/24 21:00 06/23/24 21:45 Temperature 98.4 F 98.5 F 98.4 F Temperature Source Oral Oral Pulse Rate 83 88 80 Respiratory Rate 15 15 16 Blood Pressure 151/89 H 122/74 H 122/74 H Blood Pressure Mean 109 90 90 Pulse Ox 98 95 95 Oxygen Delivery Method Room Air Room Air Weight Weight: 329 lb 12.8 oz Body Mass Index (BMI) 51.6 Physical Exam Const alert, oriented x3 and no apparent distress Constitutional Narrative: Morbidly obese. General Appearance: cooperative HEENT normocephalic, head/scalp atraumatic, hearing grossly normal bilaterally and moist oral mucous membranes Eyes PERRL and EOMs intact bilaterally Neck no lymphadenopathy, supple and no JVD Resp normal respiratory effort, no retractions, no use of accessory muscles and clear to auscultation bilaterally Cardio regular rate and regular rhythm GI normal to inspection, nondistended, normoactive bowel sounds, soft to palpation, non-tender and non-distended GI Narrative: Morbidly obese. Extremity normal to inspection, full ROM and no clubbing, cyanosis or edema Skin Skin Narrative: Patient has no evidence of rash, abscess, wounds or jaundice. Neuro oriented x3, CN's II-XII intact bilaterally, moves all extremities and no focal motor deficits Sensorium / Orientation: awake, alert, oriented to person, oriented to place and oriented to time Speech: speech normal Psych affect normal Results Medical Records Data Attestation: I reviewed the patient's medical records Lab / Micro Data Attestation: I reviewed the patient's lab results. 06/23/24 18:00 06/23/24 18:00 Labs: Laboratory Results - last 24 hr 06/23/24 18:00: WBC 9.9, RBC 5.40, Hgb 16.0, Hct 45.2, MCV 83.7, MCH 29.6, MCHC 35.4, RDW Std Deviation 39.0, RDW Coeff of José Manuel 12.9, Plt Count 245, MPV 9.0, Immature Gran % (Auto) 0.500, Neut % (Auto) 55.0, Lymph % (Auto) 31.1, [place] % (Auto) 8.9, Eos % (Auto) 3.4, Baso % (Auto) 1.1 H, Absolute Neuts (auto) 5.4, Absolute Lymphs (auto) 3.07, Nucleated RBC % 0, Sodium 136, Potassium 3.6, Chloride 99, Carbon Dioxide 22.8, Anion Gap 14, BUN 12, Creatinine 1.11, Estim Creat Clear Calc 113.29, Est GFR (MDRD) Non-Af 81, BUN/Creatinine Ratio 10.9, Glucose 172 H, Lactic Acid 2.3 H*, Calcium 9.5, Total Bilirubin 0.39, AST 28, ALT 33, Alkaline Phosphatase 55, Total Protein 6.9, Albumin 4.0, Globulin 2.9, Albumin/Globulin Ratio 1.4, Lipase 23 06/23/24 18:09: U Random Total Protein < 6.0 06/23/24 18:43: Urine Color Yellow, Urine Clarity Clear, Urine pH 6.0, Ur Specific [place] 1.010, Urine Protein TNP, Urine Glucose (UA) Normal, Urine Ketones Negative, Urine Occult Blood Negative, Urine Nitrite Negative, Urine Bilirubin Negative, Urine Urobilinogen Normal, Ur Leukocyte Esterase Negative, Urine RBC 0 SEEN, Urine WBC 0 SEEN, Ur Squamous Epith Cells 0 SEEN, Urine Bacteria 0 SEEN, Urine Mucus 0 SEEN 06/23/24 20:39: Lactic Acid 1.3 Micro: Microbiology 06/23/24 20:35 Stool Stool Occult Blood (RUBENS) - Final Occult Blood Positive Imaging Radiology Impression Abdomen/Pelvis CT 06/23/24 18:50 IMPRESSION: No acute process. [facility] Assessment & Plan Assessment/Plan (1) LGI bleed: (2) BRBPR (bright red blood per rectum): (3) Lactic acidosis: (4) Adverse drug reaction: QUALIFIERS: Encounter type: initial encounter Qualified Code(s): T50.905A - Adverse effect of unspecified drugs, medicaments and biological substances, initial encounter (5) History of colon polyps: (6) Morbid obesity with BMI of 50.0-59.9, adult: (7) Diabetes mellitus type 2, noninsulin dependent: (8) HTN (hypertension): QUALIFIERS: Hypertension type: unspecified Qualified Code(s): I10 - Essential (primary) hypertension PLAN: Plan 1. LGIB with BRBPR and abdominal pain similar to previous flare of diverticulitis - Admit to general medical floor. Type and screen blood and transfuse for hemoglobin less than 7 g/dL. Check iron studies and ferritin. Continue pantoprazole IV infusion. Give acetaminophen as needed for [id number] (level 1-5/10) pain or fever. Give morphine IV as needed for severe (level 6-10/10) pain. Finally, we will consult Dr. Perea of gastroenterology to see this patient on rounds in the a.m. for further recommendations regarding colonoscopy this admission with help appreciated in advance. 2. Lactic Acidosis of 2.3 mmol/L present on admission suspected to be due to Adverse Drug Reaction to metformin complicating #1 - Give NS IVF, stop metformin and serialize lactate to follow trend. 3. History of colonoscopy that revealed polyps and hemorrhagic nodules varicosed in the rectum (2020) and history of colitis and diverticulitis with associated LGIB with BRBPR (2022) compounding #1 & #2 with suspected recurrence - Noted. 4. Morbid Obesity; with BMI of 51.7 this admission on dulaglutide adding to the burden of disease outlined from #1 - #3 - Weight loss will be recommended. Check TSH. This complicates his case may have recovery. 5. DM-2; of unknown control on metformin adding to the medical complexity of #1 - #4 - Keep NPO for now. FSBS q. AC/HS plus lowest-intensity SSI. Check hemoglobin A1c to objectively evaluate quality of diabetic control. 6. Essential hypertension; on lisinopril - Hold lisinopril while NPO. Give hydralazine IV as needed for systolic blood pressure greater than 160 mmHg. 7. Depression; on bupropion - Resume bupropion as previous after colonoscopy. 8. GERD; on omeprazole - Patient started on IV pantoprazole for #1. 9. Positive family history of colitis in his father - Noted, 10. DVT prophylaxis - SCD's only in light of #1. Total time: Approximately (but not less than) 75 minutes. Charges/Coding Visit Charges Inpatient E&M: 34989 Init Hosp L3
[2024-06-23 23:37] LABS: Reflex Lactate? Y
[2024-06-24] MEDS: 0.9% Normal Saline (1000mL) 1,000 ML 100 ML IV ×3 (00:30→20:50)
--- NOTE | 2024-06-24 00:46 | ED.RN ---
See downtime charting.
--- NOTE | 2024-06-24 00:47 | ED.RN ---
See downtime charting.
[2024-06-24 00:55] LABS: Lactic Acid 1.5 mmol/L (0.0-2.0)
[2024-06-24 01:03] VITALS: BMI 51.3
[2024-06-24] MEDS: Pantoprazole Sodium 40 MG in 0.9% Normal Saline (100mL MB+) 100 ML 300 MG IVPB (01:17)
[2024-06-24] MEDS: Morphine 2 MG/ML Syringe IV ×2 (02:22→07:01)
[2024-06-24 03:08] LABS: Lactic Acid 2.3 mmol/L (0.0-2.0)
[2024-06-24 05:15] VITALS: BP 115/58; PULSE 72; RESP 18; TEMP 36.4; O2SAT 94
[2024-06-24 07:00] LABS: Absolute Lymphocyte Count 2.68 X10^3/uL (0.83-4.51); Absolute Neutrophil Count 2.9 X10^3/uL (2.0-7.7); Basophil# 0.08 X10^3/uL; Basophil% 1.2 % (0-1); Eosinophil# 0.31 X10^3/uL; Eosinophils% 4.6 % (0-5); Hematocrit 41.9 % (40-54); Hemoglobin 14.6 g/dL (13.0-16.5); Lymphocyte # 2.68 X10^3/ul (0.83-4.51); Lymphocyte % 39.9 % (19-41); Mean Corp Hgb Conc 34.8 g/dL (32-36); Mean Corpuscular Hgb 29.5 pg (27.0-32.0); Mean Corpuscular Volume 84.6 fL (80-94); Monocyte# 0.75 X10^3/uL; Monocyte% 11.2 % (0-10); NRBC Flagged by Analyzer 0 % (0-5); Neutrophil # 2.85 X10^3/uL (2.7-7.7); Neutrophil % 42.5 % (47-70); Platelet Count 194 K/mm3 (150-450); RBC Distribution Width CV 12.9 % (11.6-14.6); RBC Distribution Width SD 39.6 fl (35.1-43.9); Red Blood Count 4.95 M/mm3 (4.6-6.2); White Blood Count 6.7 K/mm3 (4.4-11.0)
[2024-06-24 07:15] LABS: ALB/GLOB Ratio 1.6 RATIO (0.9-2.4); AST(SGOT) 21 U/L (<=37); Alanine Aminotransfer ALT/SGPT 29 U/L (<=46); Albumin, Serum 3.6 g/dL (3.5-5.0); Alkaline Phosphatase 45 U/L (40-129); Anion Gap 11 (5-15); BUN 11 mg/dL (4-19); BUN/Creat Ratio 11.3 RATIO (10-20); Calcium,Total 8.7 mg/dL (7.6-11.0); Carbon Dioxide 23.3 mmol/L (21.0-32.0); Chloride 103 mmol/L (98-108); Creatinine, Serum 0.96 mg/dL (0.70-1.20); EST Glomerular Filtration Rate 97 (>60); Estimated Creatinine Clearance 130.58 ml/min (50-250); Globulin 2.3 g/dL (2.2-4.2); Glucose 146 mg/dL (70-99); Magnesium 1.9 mg/dL (1.5-2.2); Phosphorus 3.8 mg/dL (2.7-4.5); Potassium 3.7 mmol/L (3.3-5.1); Protein, Total 5.9 g/dL (5.9-8.4); Sodium Level 137 mmol/L (133-145); Total Bilirubin 0.46 mg/dL (0.00-1.30)
[2024-06-24 07:44] VITALS: O2SAT 90
[2024-06-24 09:01] VITALS: BP 114/61; PULSE 71; RESP 16; TEMP 36.7; O2SAT 97
[2024-06-24] MEDS: Ondansetron 4 MG/2 ML Vial IV ×2 (09:23→16:49)
--- NOTE | 2024-06-24 09:26 | PCM.PN.HOSP ---
Reason for Visit Reason for Visit: Diagnoses Type 2 diabetes mellitus without complications (06/24/24) Morbid (severe) obesity due to excess calories (06/24/24) Acidosis, unspecified (06/24/24) Essential (primary) hypertension (06/24/24) Hemorrhage of anus and rectum (06/24/24) Gastrointestinal hemorrhage, unspecified (06/24/24) Adverse effect of unspecified drugs, medicaments and biological substances, initial encounter (06/24/24) Body mass index [BMI] 50.0-59.9, adult (06/24/24) Personal history of colon polyps, unspecified (06/24/24) Objective Data Objective Data Vital Signs: Vital Signs Temp Pulse Resp BP Pulse Ox O2 Del Method 98.0 F 71 16 114/61 97 Room Air 06/24/24 09:01 06/24/24 09:01 06/24/24 09:01 06/24/24 09:01 06/24/24 09:01 06/24/24 09:01 Oxygen Delivery Method Room Air Weight: 328 lb 0.765 oz Body Mass Index (BMI) 51.3 Intake & Output: Intake and Output for Last 24 Hours 06/22/24 06/23/24 06/24/24 23:59 23:59 23:59 Intake Total 1000 / 1000 1018.33 / 1018.33 Balance 1000 / 1000 1018.33 / 1018.33 Lab / Micro Data 06/24/24 06:07 06/24/24 06:07 Labs: Laboratory Results - last 24 hr 06/23/24 18:00: WBC 9.9, RBC 5.40, Hgb 16.0, Hct 45.2, MCV 83.7, MCH 29.6, MCHC 35.4, RDW Std Deviation 39.0, RDW Coeff of José Manuel 12.9, Plt Count 245, MPV 9.0, Immature Gran % (Auto) 0.500, Neut % (Auto) 55.0, Lymph % (Auto) 31.1, [place] % (Auto) 8.9, Eos % (Auto) 3.4, Baso % (Auto) 1.1 H, Absolute Neuts (auto) 5.4, Absolute Lymphs (auto) 3.07, Nucleated RBC % 0, Sodium 136, Potassium 3.6, Chloride 99, Carbon Dioxide 22.8, Anion Gap 14, BUN 12, Creatinine 1.11, Estim Creat Clear Calc 113.29, Est GFR (MDRD) Non-Af 81, BUN/Creatinine Ratio 10.9, Glucose 172 H, Lactic Acid 2.3 H*, Calcium 9.5, Total Bilirubin 0.39, AST 28, ALT 33, Alkaline Phosphatase 55, Total Protein 6.9, Albumin 4.0, Globulin 2.9, Albumin/Globulin Ratio 1.4, Lipase 23 06/23/24 18:09: U Random Total Protein < 6.0 06/23/24 18:43: Urine Color Yellow, Urine Clarity Clear, Urine pH 6.0, Ur Specific [place] 1.010, Urine Protein TNP, Urine Glucose (UA) Normal, Urine Ketones Negative, Urine Occult Blood Negative, Urine Nitrite Negative, Urine Bilirubin Negative, Urine Urobilinogen Normal, Ur Leukocyte Esterase Negative, Urine RBC 0 SEEN, Urine WBC 0 SEEN, Ur Squamous Epith Cells 0 SEEN, Urine Bacteria 0 SEEN, Urine Mucus 0 SEEN 06/23/24 20:39: Lactic Acid 1.3 06/23/24 23:59: Lactic Acid 1.5, Blood Type O NEGATIVE, Antibody Screen NEGATIVE 06/24/24 06:07: WBC 6.7, RBC 4.95, Hgb 14.6, Hct 41.9, MCV 84.6, MCH 29.5, MCHC 34.8, RDW Std Deviation 39.6, RDW Coeff of José Manuel 12.9, Plt Count 194, MPV 9.0, Immature Gran % (Auto) 0.600, Neut % (Auto) 42.5 L, Lymph % (Auto) 39.9, [place] % (Auto) 11.2 H, Eos % (Auto) 4.6, Baso % (Auto) 1.2 H, Absolute Neuts (auto) 2.9, Absolute Lymphs (auto) 2.68, Nucleated RBC % 0, Sodium 137, Potassium 3.7, Chloride 103, Carbon Dioxide 23.3, Anion Gap 11, BUN 11, Creatinine 0.96, Estim Creat Clear Calc 130.58, Est GFR (MDRD) Non-Af 97, BUN/Creatinine Ratio 11.3, Glucose 146 H, Calcium 8.7, Phosphorus 3.8, Magnesium 1.9, Total Bilirubin 0.46, AST 21, ALT 29, Alkaline Phosphatase 45, Total Protein 5.9, Albumin 3.6, Globulin 2.3, Albumin/Globulin Ratio 1.6 Micro: Microbiology 06/23/24 20:35 Stool Stool Occult Blood (RUBENS) - Final Occult Blood Positive Radiography Diagnostic Testing: Radiology Impression Abdomen/Pelvis CT 06/23/24 18:50 IMPRESSION: No acute process. Reading [facility] Physical Exam Narrative Seen and examined. Patient has left lower quadrant abdominal pain and requiring morphine and Dilaudid. States severe 8-10/10 intensity. No fever. Bright red rectal blood before the stool and mixed with the stool. Physical exam General: Alert, Oriented x3, Cooperative HEENT: Atraumatic, PERRLA, EOMI, Normocephalic Oral: No Gingival or Mucosal Lesions/ Ulcerations Neck: Supple, No JVD, Negative Carotid Bruits Chest wall/Lungs: Air entry diminished in bilateral lung bases. No crepitation/rhonchi Cardiovascular: Regular rate, Regular Rhythm, Normal S1, Normal S2, No M/G/R Abdomen: Bowel Sounds Present, Soft, Non Tender, Non-Distended : No dysuria. No renal angle tenderness. No suprapubic tenderness. Extremities: No edema, Capillary Refill Less than 3 Seconds Skin: No rashes, No breakdown Musculoskeletal: No Tenderness to Palpation of Joints or Extremities Neurological: Cranial nerves II-XII grossly intact, DTR 2+/4. No acute focal neurological deficit. Psych/Mental Status: Normal Affect, Appropriate. Assessment & Plan Assessment/Plan (1) LGI bleed: (2) BRBPR (bright red blood per rectum): (3) Lactic acidosis: (4) Adverse drug reaction: QUALIFIERS: Encounter type: initial encounter Qualified Code(s): T50.905A - Adverse effect of unspecified drugs, medicaments and biological substances, initial encounter (5) History of colon polyps: (6) Morbid obesity with BMI of 50.0-59.9, adult: (7) Diabetes mellitus type 2, noninsulin dependent: (8) HTN (hypertension): QUALIFIERS: Hypertension type: unspecified Qualified Code(s): I10 - Essential (primary) hypertension PLAN: Plan 48-year-old gentleman was admitted with LLQ abdominal pain for last couple weeks along with bright red rectal blood. History of diverticulitis 1. LGIB with BRBPR and abdominal pain probably due to diverticulosis and diverticulitis- Admit to general medical floor. Type and screen blood and transfuse for hemoglobin less than 7 g/dL. Check iron studies and ferritin. Continue pantoprazole IV infusion. Give acetaminophen as needed for [id number] (level 1-5/10) pain or fever. Give morphine IV as needed for severe (level 6-10/10) pain. Finally, we will consult Dr. Perea of gastroenterology to see this patient on rounds in the a.m. for further recommendations regarding colonoscopy this admission with help appreciated in advance. 06/24: Although CT abdomen with IV contrast individually reviewed and reported with no significant diverticulitis but clinically it seems patient has diverticulitis with left lower quadrant abdominal pain and tenderness. Started on IV Unasyn. Plan for colonoscopy tomorrow 2. Lactic Acidosis of 2.3 mmol/L present on admission: Repeat lactic acid normal. Blood pressure 122/56. 3. Colonoscopy in 2020 showed polyps and hemorrhagic nodules varicosed in the rectum with history of recurrent colitis and diverticulitis. 4. Morbid Obesity; with BMI of 51.7 KG per square meter 5. DM-2: A1c 8.1%. Accu-Chek before meals and at bedtime with Humalog sliding scale coverage and hypoglycemia protocol. 6. Essential hypertension; on lisinopril - Hold lisinopril while NPO. Give hydralazine IV as needed for systolic blood pressure greater than 160 mmHg. 7. Depression; on bupropion - Resume bupropion as previous after colonoscopy. 8. GERD; on omeprazole - Patient started on IV pantoprazole 9. Positive family history of colitis in his father 10. DVT prophylaxis - SCD's. Pharmacological prophylaxis contraindicated Clinical Impression(s) from Imaging Studies Abdomen/Pelvis CT 06/23/24 18:50 IMPRESSION: No acute process. Charges/Coding Visit Charges Inpatient E&M: 41876 Subs Hosp L2
[2024-06-24 09:49] VITALS: BMI 51.3
[2024-06-24] MEDS: HYDROmorphone 0.5 MG/0.5 ML SYRINGE IV ×3 (09:51→20:48)
[2024-06-24] MEDS: Ampicillin/Sulbactam 3 GM in 0.9% Normal Saline (100mL MB+) 100 ML IV ×2 (11:22→17:56)
[2024-06-24 11:47] LABS: Hemoglobin A1c 8.1 % (<=5.6)
--- NOTE | 2024-06-24 13:41 | CASEMGMT ---
MEGAN HOUGH Assessment: Face to Face with pt for initial transition planning/care coordination assessment. RN GIANLUCA introduced self and role at [facility], pt voices understanding and consents to assessment. Pt is A&O x4 and answers all questions appropriately at this time.Pt lying in bed in no distress. Care providers, pharmacy, and demographics verified/updated. Admitting Dx: abd pain with LGIB and BRBPR Strata Score: 1 PCP:Claude Specialists:Denies [facility] Pres[facility] Benefit: yes LNOK: Lola Miranda, sig other Living Arrangements: Pt lives with child in a two story home with no steps to enter. Pt reports he is I in ADL/IADLs and denies concerns at home. Transportation: Pt drives self and denies concerns with transportation. DME:BGM with sufficient strips and lancets HHC/SNF: Denies hx of Pt states no concerns with going home at time of dc. Pt states no further concerns/needs. CM to follow. Advised pt to ask CM if any further questions/concerns/needs arise, voices understanding. Pt Goal: Home Plan: Home Deedee GUZMAN CM
[2024-06-24 14:37] VITALS: BP 122/56; PULSE 76; RESP 16; TEMP 36.7; O2SAT 95
[2024-06-24] MEDS: 0.9% Saline Lock 10 ML Syringe IV (16:49)
[2024-06-24 17:03] LABS: Bedside Glucose 109 mg/dL (74-106)
--- NOTE | 2024-06-24 18:23 | EX.PCM.CON.G ---
HPI Consult Data Date of Consult: 06/24/24 HPI Narrative HPI Narrative: LOUISA AMOR, is a 48 M who presents 48 M with a past medical history of essential hypertension; on lisinopril, morbid obesity; with BMI of 51.7 this admission on dulaglutide, DM-2; of unknown control on metformin, depression; on bupropion, GERD; on omeprazole, positive family history of colitis in his father, history of colonoscopy that revealed polyps and hemorrhagic nodules varicosed in the rectum (2020) and history of colitis and diverticulitis with associated LGIB with BRBPR (2022) who presents to [facility] ER complaining of LGIB with BRBPR and abdominal pain. Mr. Amor reports his symptoms began approximately 1 week prior to admission with abdominal pain mainly focused in his Right lower quadrant similar to his previous flare of diverticulitis. He then went to a movie with his son and had popcorn and after this he noted an acute worsening of his symptoms with patient having bright red blood per rectum with patient reporting significant blood loss. He initially went to urgent care but they recommended he come to the emergency department for further evaluation and treatment. He denies repeat colonoscopy since 2020. There was no reported fever, chills, nausea, vomiting, diarrhea, constipation, chest pain, shortness of breath, headache or rash. In the ER he had a digital rectal exam that revealed bright red blood in the rectal vault with a CT scan of the abdomen and pelvis that was negative for acute pathologic changes but he was noted to have laboratory evidence of mild Lactic Acidosis of 2.3 mmol/L present on admission likely due adverse drug reaction to metformin. He was then admitted to the general medical floor for ongoing care for stay that is expected to extend beyond 2 midnights. COUNTS INCLUDE 234 BEDS AT THE [facility] Medical History (Updated 06/24/24 @ 03:[address] Teo Abraham, DO) Depression HTN (hypertension) Diabetes Home Medications ?Medication ?Instructions ?Recorded ?Last Taken ?Type bupropion HCl 300 mg 24 hr tablet, 300 mg PO DAILY 04/26/20 Unknown History extended release lisinopril 2.5 mg tablet 10 mg PO DAILY htn 12/20/22 Unknown History metformin 500 mg tablet,extended 2,000 mg PO DAILY 12/20/22 Unknown History release 24 hr omeprazole 20 mg capsule,delayed 20 mg PO DAILY 12/20/22 Unknown History release dulaglutide 4.5 mg/0.5 mL 4.5 mg subcut .week dm 06/23/24 06/19/24 History subcutaneous pen injector (Trulicity) Allergy/AdvReac Type Severity Reaction Status Date / Time venom-honey bee Allergy Severe Anaphylaxis Verified 06/23/24 16:57 ketorolac tromethamine (From AdvReac Other Verified 06/23/24 16:57 Toradol) Family History Father Diabetes Social History household members: significant other and children current occupational status: employed Smoking Status: Never smoker Lab / Micro Data 06/24/24 06:07 06/24/24 06:07 Labs: Laboratory Results - last 24 hr 06/23/24 18:00: Sodium 136, Potassium 3.6, Chloride 99, Carbon Dioxide 22.8, Anion Gap 14, BUN 12, Creatinine 1.11, Estim Creat Clear Calc 113.29, Est GFR (MDRD) Non-Af 81, BUN/Creatinine Ratio 10.9, Glucose 172 H, Lactic Acid 2.3 H*, Calcium 9.5, Total Bilirubin 0.39, AST 28, ALT 33, Alkaline Phosphatase 55, Total Protein 6.9, Albumin 4.0, Globulin 2.9, Albumin/Globulin Ratio 1.4, Lipase 23 06/23/24 18:09: U Random Total Protein < 6.0 06/23/24 18:43: Urine Color Yellow, Urine Clarity Clear, Urine pH 6.0, Ur Specific [place] 1.010, Urine Protein TNP, Urine Glucose (UA) Normal, Urine Ketones Negative, Urine Occult Blood Negative, Urine Nitrite Negative, Urine Bilirubin Negative, Urine Urobilinogen Normal, Ur Leukocyte Esterase Negative, Urine RBC 0 SEEN, Urine WBC 0 SEEN, Ur Squamous Epith Cells 0 SEEN, Urine Bacteria 0 SEEN, Urine Mucus 0 SEEN 06/23/24 20:39: Lactic Acid 1.3 06/23/24 23:59: Lactic Acid 1.5, Blood Type O NEGATIVE, Antibody Screen NEGATIVE 06/24/24 06:07: WBC 6.7, RBC 4.95, Hgb 14.6, Hct 41.9, MCV 84.6, MCH 29.5, MCHC 34.8, RDW Std Deviation 39.6, RDW Coeff of José Manuel 12.9, Plt Count 194, MPV 9.0, Immature Gran % (Auto) 0.600, Neut % (Auto) 42.5 L, Lymph % (Auto) 39.9, [place] % (Auto) 11.2 H, Eos % (Auto) 4.6, Baso % (Auto) 1.2 H, Absolute Neuts (auto) 2.9, Absolute Lymphs (auto) 2.68, Nucleated RBC % 0, Sodium 137, Potassium 3.7, Chloride 103, Carbon Dioxide 23.3, Anion Gap 11, BUN 11, Creatinine 0.96, Estim Creat Clear Calc 130.58, Est GFR (MDRD) Non-Af 97, BUN/Creatinine Ratio 11.3, Glucose 146 H, Hemoglobin A1c 8.1 H, Calcium 8.7, Phosphorus 3.8, Magnesium 1.9, Total Bilirubin 0.46, AST 21, ALT 29, Alkaline Phosphatase 45, Total Protein 5.9, Albumin 3.6, Globulin 2.3, Albumin/Globulin Ratio 1.6 06/24/24 16:40: POC Glucose 109 H Micro: Microbiology 06/24/24 14:58 Stool Stool Occult Blood (RUBENS) - Final Occult Blood Positive 06/23/24 20:35 Stool Stool Occult Blood (RUBENS) - Final Occult Blood Positive Imaging Radiology Impression Abdomen/Pelvis CT 06/23/24 18:50 IMPRESSION: No acute process. Reading Location: [facility]
[2024-06-24] MEDS: Bisacodyl 5 MG Tablet 20 MG PO (18:52)
[2024-06-24 20:00] VITALS: BP 148/85; PULSE 75; RESP 16; TEMP 36.7; O2SAT 96
[2024-06-24] MEDS: Acetaminophen 325 MG Tablet 650 MG PO (20:02)
[2024-06-24] MEDS: Polyethylene Glycol 3350 BOWEL PREP PO (20:12)
[2024-06-24] MEDS: proMETHazine 25 MG/ML Syringe IM (20:54)
[2024-06-24 21:00] VITALS: PULSE 75; RESP 16
[2024-06-25] VITALS (8 sets, daily range): BP systolic 116–151; BP diastolic 64–90; PULSE 65–90; RESP 16–18; TEMP 36.2–37.2; O2SAT 94–97; BMI 50.8
[2024-06-25] MEDS: Ampicillin/Sulbactam 3 GM in 0.9% Normal Saline (100mL MB+) 100 ML IV ×4 (00:14→18:21)
[2024-06-25 00:33] LABS: Bedside Glucose 151 mg/dL (74-106)
[2024-06-25 05:39] LABS: Absolute Lymphocyte Count 2.17 X10^3/uL (0.83-4.51); Absolute Neutrophil Count 3.2 X10^3/uL (2.0-7.7); Basophil# 0.07 X10^3/uL; Basophil% 1.1 % (0-1); Eosinophil# 0.34 X10^3/uL; Eosinophils% 5.3 % (0-5); Hematocrit 42.6 % (40-54); Hemoglobin 14.9 g/dL (13.0-16.5); Lymphocyte # 2.17 X10^3/ul (0.83-4.51); Lymphocyte % 33.9 % (19-41); Mean Corpuscular Hgb 29.7 pg (27.0-32.0); Mean Corpuscular Volume 84.9 fL (80-94); Mean Platelet Vol. 8.9 fl (6.2-12.0); Monocyte% 9.4 % (0-10); NRBC Flagged by Analyzer 0 % (0-5); Neutrophil % 49.8 % (47-70); Platelet Count 183 K/mm3 (150-450); RBC Distribution Width CV 12.7 % (11.6-14.6); RBC Distribution Width SD 38.7 fl (35.1-43.9); Red Blood Count 5.02 M/mm3 (4.6-6.2); White Blood Count 6.4 K/mm3 (4.4-11.0)
[2024-06-25 06:18] LABS: Anion Gap 14 (5-15); BUN 7 mg/dL (4-19); BUN/Creat Ratio 8.3 RATIO (10-20); Calcium,Total 8.8 mg/dL (7.6-11.0); Carbon Dioxide 20.1 mmol/L (21.0-32.0); Chloride 106 mmol/L (98-108); Creatinine, Serum 0.89 mg/dL (0.70-1.20); EST Glomerular Filtration Rate 105 (>60); Estimated Creatinine Clearance 140.85 ml/min (50-250); Glucose 121 mg/dL (70-99); Potassium 3.8 mmol/L (3.3-5.1); Sodium Level 140 mmol/L (133-145)
[2024-06-25 06:20] LABS: Bedside Glucose 128 mg/dL (74-106)
[2024-06-25] MEDS: HYDROmorphone 0.5 MG/0.5 ML SYRINGE IV ×2 (08:06→22:02)
[2024-06-25] MEDS: Ondansetron 4 MG/2 ML Vial IV (08:06)
[2024-06-25] MEDS: 0.9% Normal Saline (1000mL) 1,000 ML 100 ML IV (08:06)
[2024-06-25 12:09] LABS: Bedside Glucose 129 mg/dL (74-106)
[2024-06-25] MEDS: Lactated Ringers 1,000 ML 15 ML IV (14:20)
--- NOTE | 2024-06-25 14:30 | COLBX_PTH ---
PATIENT: LOUISA AMOR LOC: MS3 U#:[id number] AGE/SX: 48/M ROOM: [facility]322 RE06/24/[address]: Dr. Jerome Bennett MD : 1975 BED: 1 DIS: 06/26/2024 SPEC #: [id number] RECD: 06/25/24 17:18 STATUS: BETTYE REJeanette #: [id number] VÍCTOR: 06/25/24 14:[address]: Francisco Perea DEPT: SURGICAL PATHOLOGY RECD BY: Wendy Page ENTERED: 06/28/24 07:15 SP TYPE: COLON BX OTHR DR: DO Dr. Jerome Guevara MD Dr. William Lago, MD Tissues: A - Transverse colon B - Ileum, NOS C - Sigmoid colon biopsy D - Rectum, NOS Procedures: Surgery Specimen Level IV Comments: @ Ordering doctor for SUIV edited from to @ alvaro DUENAS at 06/28/24 0916 @ Submitting doctor edited from to @ by YULISSA at 06/28/24 0916 HEADER OPERATION: Colonoscopy with polypectomy and biopsy PRE-OP DIAGNOSIS: Lower GI bleed, bright red blood per rectum TISSUE SUBMITTED: A- Transverse colon polyp and biopsy, B- Terminal ileum biopsy, C- Sigmoid colon polyp biopsy, D- Rectum and anus biopsy MICROSCOPIC DIAGNOSIS A. Transverse colon, polyp, biopsy: Tubular adenoma (one fragment). Sessile serrated lesion (multiple fragments). B. Small bowel, terminal ileum, biopsy: Normal villous architecture with focal mucosal lymphoid aggregates. C. Sigmoid colon, polyp, biopsy: Tubular adenoma (one fragment). Hyperplastic polyp (one fragment). D. Rectum, anus, biopsy: Focal active colitis, mucosal lymphoid aggregates. MICROSCOPIC DESCRIPTION Slides are reviewed. GROSS DESCRIPTION A. Received in formalin in a container labeled with the patient's name, date of , and transverse colon polyp are multiple mcconnell-pink fragments of mucosal tissue measuring 1.0 x 0.7 x 0.2 cm in aggregate. Submitted in toto in A1. B. Received in formalin in a container labeled with the patient's name, date of , and terminal ileum biopsy are multiple mcconnell-pink fragments of mucosal tissue measuring 0.8 x 0.7 x 0.3 cm in aggregate. Submitted in toto in B1. C. Received in formalin in a container labeled with the patient's name, date of , and sigmoid colon polyp biopsy are 2 mcconnell-pink fragments of mucosal tissue measuring 0.2 x 0.2 x 0.2 cm and 0.3 x 0.3 x 0.3 cm. Submitted in toto in C1. D. Received in formalin in a container labeled with the patient's name, date of , and rectum and anus biopsy are multiple mcconnell-pink fragments of soft tissue measuring 0.8 x 0.6 x 0.2 cm in aggregate. Submitted in toto in D 1. [facility] 06-28-2024 CPT:85263n5
--- NOTE | 2024-06-25 14:33 | PRE.ANES_ITS ---
ASA Classification* ASA Classification ASA Classification: 3 and E Assessment & Plan Anesthesia* Anesthesia Assessment Anesthesia Assessment: Discussed sedation and/or anesthesia options, risks, benefits, and alternatives with patient/parents/legal guardian/POA. Questions invited. The patient/parents/legal guardian/POA seems to understand and agrees to proceed with anesthesia plan. Reviewed the physical assessment, medical history, allergy history and patient home medications list prior to surgery/procedure/anesthetic and documented any changes. Performed airway and anesthesia risk assessments. Anesthesia Type Anesthesia Type: MAC Anesthesia Focused Assessment* Temperature: 98.0 F Pulse Rate: 66 Blood Pressure: 121/65 Respiratory Rate: 16 Pulse Ox: 96 Oxygen Delivery Method: Room Air Airway Assessment Mouth opens: >3 cm Mallampati Score: III Teeth Condition: Intact Focused Labs Anesthesia Preop lab: CBC WBC 6.4 K/mm3 (4.4-11.0) 06/25/24 04:35 06/25/24 RBC 5.02 M/mm3 (4.6-6.2) 06/25/24 04:35 06/25/24 Hgb 14.9 g/dL (13.0-16.5) 06/25/24 04:35 06/25/24 Hct 42.6 % (40-54) 06/25/24 04:35 06/25/24 Plt Count 183 K/mm3 (150-450) 06/25/24 04:35 06/25/24 CHEMISTRY Potassium 3.8 mmol/L (3.3-5.1) 06/25/24 04:35 06/25/24 Sodium 140 mmol/L (133-145) 06/25/24 04:35 06/25/24 Magnesium 1.9 mg/dL (1.5-2.2) 06/24/24 06:07 06/24/24 Phosphorus 3.8 mg/dL (2.7-4.5) 06/24/24 06:07 06/24/24 BUN 7 mg/dL (4-19) 06/25/24 04:35 06/25/24 Creatinine 0.89 mg/dL (0.70-1.20) 06/25/24 04:35 06/25/24 Glucose 121 mg/dL (70-99) H 06/25/24 04:35 06/25/24 POC Glucose 129 mg/dL (74-106) H 06/25/24 11:51 06/25/24 COAG Pre-Assessment Diagnosis/Proposed Procedure Planned Operative Procedure(s): colonoscopy Anesthesia History 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 When Was Last Pacemaker Check QUESTION #4 FULL TEXT: You/Your Family Experience fever (hyperthermia) with Anesthesia Last Oral Intake Last Oral intake: Last Oral Intake NPO since 23:55 06/25/24 09:30 Meds taken in AM with sips of No 06/25/24 09:30 water? Meds patient instructed to take am of surgery PONV PONV - building construction teacher: PONV - building construction teacher Female HX of Motion Sickness HX of N/V After Surgery Non-Smoker Duration of Surgery greater than 60 minutes Number of Risk Factors PONV Score Height & Weight Height & Weight: Anesthesia: Height & Weight Height 5 ft 7 in 06/25/24 09:30 Weight: 147.418 kg 06/25/24 09:30 Body Mass Index (BMI) 50.8 06/25/24 09:30 Respiratory Assessment Respiratory Assessment - building construction teacher: Respiratory Tract Infection Hx - building construction teacher Hx Respiratory Tract Infection No 06/25/24 09:30 STOP Sleep Apnea STOP Sleep Apnea - building construction teacher: STOP Sleep Apnea - building construction teacher Hx Hypertension Yes 06/23/24 23:30 Hx Sleep Apnea Yes 06/23/24 23:30 CPAP No 06/23/24 23:30 BIPAP No 06/23/24 23:30 Do you snore loudly (louder than talking or can be heard Do you often feel tired/ fatigued/ sleepy during daytime? Has anyone observed you stop breathing during sleep? STOP Results Positive 06/23/24 23:30 QUESTION #5 FULL TEXT : Do you snore loudly (louder than talking or can be heard through closed doors)? 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: Tobacco Use History - building construction teacher Tobacco Use Smoking Status Never smoker 06/23/24 23:30 Hx Tobacco Use No 06/23/24 23:30 Years Smoking Packs Smoked per Day Smoking Cessation Date was within the last 15 years Hx Smoking Cessation Date Hx Smoking Cessation Counseling Hematologic Medial History Hematologic Hx - building construction teacher: Hematologic Medical Hx - cuff knitter Hx of Blood Transfusion No 06/23/24 23:30 Hx of Transfusion in last 3 No 06/23/24 23:30 Months Date of Last Transfusion (if within last 3 months) Ever experience any problems No 06/23/24 23:30 with transfusion(s)? Specify any problems Hx of Preganancy in last 3 N/A 06/23/24 23:30 Months Nurse Filling Out Transfusion DREDICK 06/23/24 23:30 & Questions: Date: 06/24/24 06/23/24 23:30 Time: 01:12 06/23/24 23:30 Patient unable to answer at this time (ie. confused, unrespo /Reproduction History /Reproductive History - building construction teacher: /Reproductive Hx- building construction teacher Hx Now No 06/25/24 09:30 Gestational Age (in weeks): EDC: Hx Hx Para Hx Section SAB No 06/25/24 09:30 Active Medications Active Medications: Current Medications Generic Name Dose Route Start Last Admin Trade Name Freq PRN Reason Stop Dose Admin Acetaminophen 650 mg 06/24/24 00:51 06/24/24 20:02 Acetaminophen 325 Mg Tablet PO 650 mg Q6H PRN PRN Administration Pain Score 1-5 Glucagon 1 mg 06/24/24 16:26 Glucagon 1 Mg/Ml Syringe IM X1 PRN Hypoglycemia Protocol Hydralazine HCl 5 mg 06/24/24 00:51 Hydralazine 20 Mg/Ml Vial IV Q8H PRN PRN htn. SBP>160 mmhg Protocol Hydromorphone HCl 0.5 mg 06/24/24 09:28 06/25/24 08:06 Hydromorphone 0.5 Mg/0.5 Ml Syringe IV 0.5 mg Q4H PRN PRN Administration Pain Score 4-10 or Pre PT/OT Sodium Chloride 1,000 mls @ 100 mls/hr 06/24/24 00:45 06/25/24 14:20 IV 0 mls/hr .Q10H PEYTON Infusion Sodium Chloride 100 mls @ 15 mls/hr 06/24/24 01:06 IV .Q6H40M PRN Saline Flush Sodium Chloride 100 mls @ 15 mls/hr 06/24/24 01:06 IV .Q6H40M PRN Additional IVPB Infusion Ampicillin Sodium/Sulbactam 112 mls @ 150 mls/hr 06/24/24 11:00 06/25/24 11:33 Sodium 3 gm/ Sodium Chloride IV 150 mls/hr Q6 PEYTON Administration Dextrose 250 mls @ 0 mls/hr 06/24/24 16:26 Dextrose 10%-Water IV .Q0M PRN HYPOGLYCEMIA Protocol As Directed Pantoprazole Sodium 40 mg/ 110 mls @ 330 mls/hr 06/25/24 10:00 06/25/24 11:33 Sodium Chloride IV Not Given Q24 PEYTON Lactated Ringer's 1,000 mls @ 15 mls/hr 06/25/24 14:30 06/25/24 14:20 IV 15 mls/hr .Q48H PEYTON Administration Insulin Human Lispro 0 unit 06/24/24 18:00 06/25/24 11:33 Insulin Lispro 100 Unit/Ml Insuln.Pen SC Not Given Q6 PEYTON Protocol Ondansetron HCl 4 mg 06/24/24 00:45 06/25/24 08:06 Ondansetron 4 Mg/2 Ml Vial IV 4 mg Q6H PRN PRN Administration NAUSEA/VOMITING Promethazine HCl 25 mg 06/24/24 20:38 06/24/24 20:54 Promethazine 25 Mg/Ml Syringe IM 25 mg Q4H PRN PRN Administration NAUSEA/VOMITING Sodium Chloride 10 - 40 ml 06/24/24 01:06 06/24/24 16:49 0.9% Saline Lock 10 Ml Syringe IV 10 ml UD PRN Administration SALINE FLUSH PFSH Medical History Depression HTN (hypertension) Diabetes Home Medications ?Medication ?Instructions ?Recorded ?Last Taken ?Type bupropion HCl 300 mg 24 hr tablet, 300 mg PO DAILY Unknown History extended release lisinopril 2.5 mg tablet 10 mg PO DAILY htn 12/20/22 Unknown History metformin 500 mg tablet,extended 2,000 mg PO DAILY Unknown History release 24 hr omeprazole 20 mg capsule,delayed 20 mg PO DAILY Unknown History release dulaglutide 4.5 mg/0.5 mL 4.5 mg subcut .week dm 06/2306/19/24 History subcutaneous pen injector (Trulicity) Allergy/AdvReac Type Severity Reaction Status Date / Time venom-honey bee Allergy Severe Anaphylaxis Verified 06/23/24 16:57 ketorolac tromethamine (From AdvReac Other Verified 06/23/24 16:57 Toradol) Family History Father Diabetes Social History household members: significant other and children current occupational status: employed Smoking Status: Never smoker Review of Systems (Anesthesia) ROS Narrative System reviewed and no additional complaints, except as documented.
--- NOTE | 2024-06-25 15:34 | PCM.PN.BLA ---
Progress Note Patient did have some bleeding with the prep. Physical Exam Narrative Seen and examined. Patient has left lower quadrant abdominal pain and requiring morphine and Dilaudid. States severe 8-10/10 intensity. No fever. Bright red rectal blood before the stool and mixed with the stool. Physical exam General: Alert, Oriented x3, Cooperative HEENT: Atraumatic, PERRLA, EOMI, Normocephalic Oral: No Gingival or Mucosal Lesions/ Ulcerations Neck: Supple, No JVD, Negative Carotid Bruits Chest wall/Lungs: Air entry diminished in bilateral lung bases. No crepitation/rhonchi Cardiovascular: Regular rate, Regular Rhythm, Normal S1, Normal S2, No M/G/R Abdomen: Bowel Sounds Present, Soft, Non Tender, Non-Distended : No dysuria. No renal angle tenderness. No suprapubic tenderness. Extremities: No edema, Capillary Refill Less than 3 Seconds Skin: No rashes, No breakdown Musculoskeletal: No Tenderness to Palpation of Joints or Extremities Neurological: Cranial nerves II-XII grossly intact, DTR 2+/4. No acute focal neurological deficit. Psych/Mental Status: Normal Affect, Appropriate. Assessment & Plan Assessment/Plan (1) LGI bleed: (2) BRBPR (bright red blood per rectum): (3) Lactic acidosis: (4) Adverse drug reaction: QUALIFIERS: Encounter type: initial encounter Qualified Code(s): T50.905A - Adverse effect of unspecified drugs, medicaments and biological substances, initial encounter (5) History of colon polyps: (6) Morbid obesity with BMI of 50.0-59.9, adult: (7) Diabetes mellitus type 2, noninsulin dependent: (8) HTN (hypertension): QUALIFIERS: Hypertension type: unspecified Qualified Code(s): I10 - Essential (primary) hypertension PLAN: Plan 48-year-old gentleman with LGIB with BRBPR and abdominal pain similar to previous flare of diverticulitis. He will undergo colonoscopy to evaluate his lower GI tract. History of colonoscopy that revealed polyps and hemorrhagic nodules varicosed in the rectum (2020) and history of colitis and diverticulitis with associated LGIB with BRBPR (2022) compounding #1 & #2 with suspected recurrence. He was explained alternatives, risk and benefits include understanding bleeding, infection, sepsis, perforation, need for emergent urgent . He will have an ASA of 3. Visit Charges Inpatient E&M: 85667 Subs Hosp L3
--- NOTE | 2024-06-25 15:46 | PCM.PN.HOSP ---
Reason for Visit Reason for Visit: Diagnoses Type 2 diabetes mellitus without complications (06/24/24) Morbid (severe) obesity due to excess calories (06/24/24) Acidosis, unspecified (06/24/24) Essential (primary) hypertension (06/24/24) Hemorrhage of anus and rectum (06/24/24) Gastrointestinal hemorrhage, unspecified (06/24/24) Adverse effect of unspecified drugs, medicaments and biological substances, initial encounter (06/24/24) Body mass index [BMI] 50.0-59.9, adult (06/24/24) Personal history of colon polyps, unspecified (06/24/24) Objective Data Objective Data Vital Signs: Vital Signs Temp Pulse Resp BP Pulse Ox O2 Del Method 98.0 F 66 16 121/65 H 96 Room Air 06/25/24 14:38 06/25/24 14:38 06/25/24 14:38 06/25/24 14:38 06/25/24 14:38 06/25/24 14:38 Oxygen Delivery Method Room Air Weight: 325 lb Body Mass Index (BMI) 50.8 Intake & Output: Intake and Output for Last 24 Hours 06/23/24 06/24/24 06/25/24 23:59 23:59 23:59 Intake Total 1000 / 1000 2884.00 / 2884.00 Balance 1000 / 1000 2884.00 / 2884.00 Lab / Micro Data 06/25/24 04:35 06/25/24 04:35 Labs: Laboratory Results - last 24 hr 06/24/24 16:40: POC Glucose 109 H 06/25/24 00:10: POC Glucose 151 H 06/25/24 04:35: WBC 6.4, RBC 5.02, Hgb 14.9, Hct 42.6, MCV 84.9, MCH 29.7, MCHC 35.0, RDW Std Deviation 38.7, RDW Coeff of José Manuel 12.7, Plt Count 183, MPV 8.9, Immature Gran % (Auto) 0.500, Neut % (Auto) 49.8, Lymph % (Auto) 33.9, [place] % (Auto) 9.4, Eos % (Auto) 5.3 H, Baso % (Auto) 1.1 H, Absolute Neuts (auto) 3.2, Absolute Lymphs (auto) 2.17, Nucleated RBC % 0, Sodium 140, Potassium 3.8, Chloride 106, Carbon Dioxide 20.1 L, Anion Gap 14, BUN 7, Creatinine 0.89, Estim Creat Clear Calc 140.85, Est GFR (MDRD) Non-Af 105, BUN/Creatinine Ratio 8.3 L, Glucose 121 H, Calcium 8.8 06/25/24 05:46: POC Glucose 128 H 06/25/24 11:51: POC Glucose 129 H Micro: Microbiology 06/24/24 14:58 Stool Stool Occult Blood (RUBENS) - Final Occult Blood Positive 06/23/24 20:35 Stool Stool Occult Blood (RUBENS) - Final Occult Blood Positive Physical Exam Narrative Seen and examined. Patient has left lower quadrant abdominal pain and requiring morphine and Dilaudid. States severe 8-10/10 intensity. No fever. Patient underwent colon prep for colonoscopy today. Had bright red rectal blood before the stool and mixed with the stool. Physical exam General: Alert, Oriented x3, Cooperative HEENT: Atraumatic, PERRLA, EOMI, Normocephalic Oral: No Gingival or Mucosal Lesions/ Ulcerations Neck: Supple, No JVD, Negative Carotid Bruits Chest wall/Lungs: Air entry diminished in bilateral lung bases. No crepitation/rhonchi Cardiovascular: Regular rate, Regular Rhythm, Normal S1, Normal S2, No M/G/R Abdomen: Bowel Sounds Present, Soft, Non Tender, Non-Distended : No dysuria. No renal angle tenderness. No suprapubic tenderness. Extremities: No edema, Capillary Refill Less than 3 Seconds Skin: No rashes, No breakdown Musculoskeletal: No Tenderness to Palpation of Joints or Extremities Neurological: Cranial nerves II-XII grossly intact, DTR 2+/4. No acute focal neurological deficit. Psych/Mental Status: Normal Affect, Appropriate. Assessment & Plan Assessment/Plan (1) LGI bleed: (2) BRBPR (bright red blood per rectum): (3) Lactic acidosis: (4) Adverse drug reaction: QUALIFIERS: Encounter type: initial encounter Qualified Code(s): T50.905A - Adverse effect of unspecified drugs, medicaments and biological substances, initial encounter (5) History of colon polyps: (6) Morbid obesity with BMI of 50.0-59.9, adult: (7) Diabetes mellitus type 2, noninsulin dependent: (8) HTN (hypertension): QUALIFIERS: Hypertension type: unspecified Qualified Code(s): I10 - Essential (primary) hypertension PLAN: Plan 48-year-old gentleman was admitted with LLQ abdominal pain for last couple weeks along with bright red rectal blood. History of diverticulitis 1. LGIB with BRBPR and abdominal pain probably due to diverticulosis and diverticulitis or other probability ischemic colitis- Admit to general medical floor. Type and screen blood and transfuse for hemoglobin less than 7 g/dL. Check iron studies and ferritin. Continue pantoprazole IV infusion. Give acetaminophen as needed for [id number] (level 1-5/10) pain or fever. Give morphine IV as needed for severe (level 6-10/10) pain. Finally, we will consult Dr. Perea of gastroenterology to see this patient on rounds in the a.m. for further recommendations regarding colonoscopy this admission with help appreciated in advance. 06/24: Although CT abdomen with IV contrast individually reviewed and reported with no significant diverticulitis but clinically it seems patient has diverticulitis with left lower quadrant abdominal pain and tenderness. Started on IV Unasyn. Plan for colonoscopy tomorrow 06/25: Discussed with Dr. Perea. Plan for colonoscopy today. Continue antibiotic. Normal white count. Other possibility might have an ischemic colitis. Infectious colitis less likely as patient does not have fever, inflammation/thickening of colon or leukocytosis. Usually, lower GI bleed is less obvious infectious colitis 2. Lactic Acidosis of 2.3 mmol/L present on admission: Repeat lactic acid normal. Blood pressure 122/56. 3. Colonoscopy in 2020 showed polyps and hemorrhagic nodules varicosed in the rectum with history of recurrent colitis and diverticulitis. 4. Morbid Obesity; with BMI of 51.7 KG per square meter 5. DM-2: A1c 8.1%. Accu-Chek before meals and at bedtime with Humalog sliding scale coverage and hypoglycemia protocol. 6. Essential hypertension; on lisinopril - Hold lisinopril while NPO. Give hydralazine IV as needed for systolic blood pressure greater than 160 mmHg. 7. Depression; on bupropion - Resume bupropion as previous after colonoscopy. 8. GERD; on omeprazole - Patient started on IV pantoprazole 9. Positive family history of colitis in his father 10. DVT prophylaxis - SCD's. Pharmacological prophylaxis contraindicated Clinical Impression(s) from Imaging Studies Abdomen/Pelvis CT 06/23/24 18:50 IMPRESSION: No acute process. Charges/Coding Visit Charges Inpatient E&M: 15680 Subs Hosp L2
--- NOTE | 2024-06-25 16:22 | PCM.POST.ANE ---
Anesthesia: Postop Eval I Current Vital Signs Temperature: 97.2 F Pulse Rate: 86 Blood Pressure: 116/67 Respiratory Rate: 16 Pulse Ox: 97 Oxygen Delivery Method: Room Air Assessment Airway patent: Yes Spontaneous unlabored respirations: Yes Mental status: Awake and Calm nausea: No Vomiting: No Anesthesia Complication: No Fluid Hydration Crystalloid volume administer (ml): 500 Total IV fluid infused: 500 Progress Note Anesthesia document: Postop Eval 1 completed: Yes
--- NOTE | 2024-06-25 16:29 | OP.COLON_ITS ---
Patient Name: Jeremy Lopez Procedure Date: 06/25/2024 3:29 PM Date of : 1975 Age: 48 Procedure: Colonoscopy Indications: Hematochezia Providers: Francisco Perea DO Medicines: Monitored Anesthesia Care Patient Profile: This is a 48 year old male. Refer to note in patient chart for documentation of history and physical. Last Colonoscopy: date unknown. Unable to locate last colonoscopy report. Complications: No immediate complications. Procedure: Pre-Anesthesia Assessment: - Prior to the procedure, a History and Physical was performed, and patient medications and allergies were reviewed. The patient is competent. The risks and benefits of the procedure and the sedation options and risks were discussed with the patient. All questions were answered and informed consent was obtained. Patient identification and proposed procedure were verified by the physician in the pre-procedure area. Mental Status Examination: alert and oriented. Airway Examination: normal oropharyngeal airway and neck mobility. Respiratory Examination: clear to auscultation. CV Examination: normal. Prophylactic Antibiotics: The patient does not require prophylactic antibiotics. Prior Anticoagulants: The patient has taken no anticoagulant or antiplatelet agents except for NSAID medication. ASA Grade Assessment: II - A patient with mild systemic disease. After reviewing the risks and benefits, the patient was deemed in satisfactory condition to undergo the procedure. The anesthesia plan was to use monitored anesthesia care (MAC). Immediately prior to administration of medications, the patient was re-assessed for adequacy to receive sedatives. The heart rate, respiratory rate, oxygen saturations, blood pressure, adequacy of pulmonary ventilation, and response to care were monitored throughout the procedure. The physical status of the patient was re-assessed after the procedure. After I obtained informed consent, the scope was passed under direct vision. Throughout the procedure, the patient's blood pressure, pulse, and oxygen saturations were monitored continuously. The Colonoscope was introduced through the anus and advanced to the terminal ileum. The colonoscopy was performed without difficulty. The patient tolerated the procedure well. The quality of the bowel preparation was adequate. Scope In: 3:52:33 PM Scope Withdrawal Time 0 hours 11 minutes 42 seconds Scope Out: 4:11:44 PM Total Procedure Duration Time 0 hours 19 minutes 11 seconds Findings: The perianal and digital rectal examinations were normal. Inflammation characterized by erosions, erythema, friability, granularity and aphthous ulcerations was found in a continuous and circumferential pattern from the anus to the rectum. The recto-sigmoid colon, the sigmoid colon, the descending colon, the splenic flexure, the transverse colon, the hepatic flexure, the ascending colon and the cecum were spared. The inflammation was moderate in severity, and when compared to previous examinations, the findings are new. Biopsies were taken with a cold forceps for histology. Verification of patient identification for the specimen was done. Estimated blood loss was minimal. Two sessile polyps were found in the sigmoid colon. The polyps were 5 mm in size. These polyps were removed with a cold biopsy forceps. Resection and retrieval were complete. Verification of patient identification for the specimen was done. Estimated blood loss was minimal. Two sessile polyps were found in the transverse colon and ascending colon. The polyps were 1 to 2 mm in size. These polyps were removed with a hot snare. Resection and retrieval were complete. Verification of patient identification for the specimen was done. Estimated blood loss was minimal. The terminal ileum appeared normal. Biopsies were taken with a cold forceps for histology. Verification of patient identification for the specimen was done. Estimated blood loss was minimal. Impression: - Ulcerative colitis. Inflammation was found from the anus to the rectum. This was moderate in severity, new compared to previous examinations. Biopsied. - Two 5 mm polyps in the sigmoid colon, removed with a cold biopsy forceps. Resected and retrieved. - Two 1 to 2 mm polyps in the transverse colon and in the ascending colon, removed with a hot snare. Resected and retrieved. - The examined portion of the ileum was normal. Biopsied. Recommendation: - Discharge patient to home. - Resume regular diet. - Continue present medications. - Await pathology results. - Repeat colonoscopy for surveillance. - rectal hydrocortisone twice daily x 4 weeks - Prednisone 40mg daily until he follows up in the clinic Procedure Code(s): --- Professional --- 40286, Colonoscopy, flexible; with removal of tumor(s), polyp(s), or other lesion(s) by snare technique 59240, 59, Colonoscopy, flexible; with biopsy, single or multiple CPT copyright 2021 [employer]. All rights reserved. The codes documented in this report are preliminary and upon surface ship usw supervisor review may be revised to meet current compliance requirements. Francisco Perea DO 06/25/2024 4:29:25 PM This report has been signed electronically. Number of Addenda: 0 Note Initiated On: 06/25/2024 3:29 PM
--- NOTE | 2024-06-25 16:29 | OP.CCLET_ITS ---
06/25/2024 Ren Arce Re : Colonoscopy procedure for Jeremy Benton Claude This procedure was performed on Tuesday, June 25, 2024. My impressions and recommendations are as follows: Impressions : - Ulcerative colitis. Inflammation was found from the anus to the rectum. This was moderate in severity, new compared to previous examinations. Biopsied. - Two 5 mm polyps in the sigmoid colon, removed with a cold biopsy forceps. Resected and retrieved. - Two 1 to 2 mm polyps in the transverse colon and in the ascending colon, removed with a hot snare. Resected and retrieved. - The examined portion of the ileum was normal. Biopsied. Recommendations : - Discharge patient to home. - Resume regular diet. - Continue present medications. - Await pathology results. - Repeat colonoscopy for surveillance. - rectal hydrocortisone twice daily x 4 weeks - Prednisone 40mg daily until he follows up in the clinic My findings are described in the full procedure note, which is enclosed. If I can be of further assistance, please feel free to contact me at . Sincerely, Francisco Perea, 06/25/2024 4:29:25 PM This report has been signed electronically.
--- NOTE | 2024-06-25 16:41 | PCM.POSTANE2 ---
Anesthesia Postop Eval I Sum Postop Eval Completion status Anesthesia document: Postop Eval 1 completed: Yes Anesthesia Postop Eval I Summary Anesthesia Postop Eval I Summary: Anesthesia Postop Eval I: Assessment Summary Airway patent Yes 06/25/24 16:25 Spontaneous unlabored Yes 06/25/24 16:25 respirations Mental status Awake,Calm 06/25/24 16:25 nausea No 06/25/24 16:25 Vomiting No 06/25/24 16:25 Anesthesia Postop Eval I: Fluid Summary Crystalloid volume administer 500 06/25/24 16:25 (ml) Colloids volume administered ( ml) Blood Product volume administered (ml) Total IV fluid infused 500 06/25/24 16:25 Anesthesia Postop Eval I: Summary Notes Anesthesia Complication No 06/25/24 16:25 Anesthesia Complication Comment: Post-operative progress note Anesthesia: Postop Eval II Evaluation Mental status: Awake and Calm Pain Level: 0 nausea: No Vomiting: No Complications Anesthesia Complication: No
[2024-06-25] MEDS: MethylPREDNISolone 125 MG/2 ML Vial IV (17:25)
[2024-06-25 17:29] LABS: Bedside Glucose 104 mg/dL (74-106)
[2024-06-25] MEDS: Hydrocortisone 100 MG/60 ML ENEMA RC ×2 (17:34→22:00)
[2024-06-25] MEDS: Acetaminophen 325 MG Tablet 650 MG PO (19:56)
[2024-06-25] MEDS: 0.9% Saline Lock 10 ML Syringe IV (22:03)
[2024-06-26] MEDS: Ampicillin/Sulbactam 3 GM in 0.9% Normal Saline (100mL MB+) 100 ML IV ×2 (00:07→05:35)
[2024-06-26] MEDS: Insulin Lispro 100 UNIT/ML INSULN.PEN SC ×2 (00:13→06:40)
[2024-06-26 00:25] LABS: Bedside Glucose 384 mg/dL (74-106)
[2024-06-26 03:10] VITALS: BP 132/79; PULSE 78; RESP 16; TEMP 36.8; O2SAT 95
[2024-06-26 06:27] LABS: Absolute Lymphocyte Count 0.94 X10^3/uL (0.83-4.51); Basophil# 0.02 X10^3/uL; Basophil% 0.2 % (0-1); Hematocrit 43.1 % (40-54); Hemoglobin 15.2 g/dL (13.0-16.5); Lymphocyte # 0.94 X10^3/ul (0.83-4.51); Mean Corp Hgb Conc 35.3 g/dL (32-36); Mean Corpuscular Hgb 29.5 pg (27.0-32.0); Mean Corpuscular Volume 83.5 fL (80-94); Mean Platelet Vol. 9.2 fl (6.2-12.0); Monocyte# 0.33 X10^3/uL; Monocyte% 3.2 % (0-10); NRBC Flagged by Analyzer 0 % (0-5); Neutrophil # 9.04 X10^3/uL (2.7-7.7); Neutrophil % 86.9 % (47-70); Platelet Count 215 K/mm3 (150-450); RBC Distribution Width SD 36.8 fl (35.1-43.9); Red Blood Count 5.16 M/mm3 (4.6-6.2); White Blood Count 10.4 K/mm3 (4.4-11.0)
[2024-06-26 06:59] LABS: Bedside Glucose 238 mg/dL (74-106)
[2024-06-26 07:02] LABS: Anion Gap 12 (5-15); BUN 10 mg/dL (4-19); BUN/Creat Ratio 11.6 RATIO (10-20); Calcium,Total 9.4 mg/dL (7.6-11.0); Carbon Dioxide 20.7 mmol/L (21.0-32.0); Chloride 103 mmol/L (98-108); Creatinine, Serum 0.84 mg/dL (0.70-1.20); EST Glomerular Filtration Rate 107 (>60); Glucose 246 mg/dL (70-99); Potassium 4.2 mmol/L (3.3-5.1); Sodium Level 136 mmol/L (133-145)
[2024-06-26 08:47] VITALS: BP 139/81; PULSE 84; RESP 18; TEMP 36.5; O2SAT 97
[2024-06-26] MEDS: Acetaminophen 325 MG Tablet 650 MG PO (08:58)
[2024-06-26] MEDS: Hydrocortisone 100 MG/60 ML ENEMA RC (09:06)
--- NOTE | 2024-06-26 09:15 | DCINST_ITS ---
Discharge Instructions DC O2, CPAP, BIPAP needs Home O2 Discharge instructions: No Follow Up Care Test Results: Test results from this visit will be discussed in further detail at your follow- up appointment, if applicable. Discharge Plan Admission Admit Date/Time: 06/24/24 00:45 Primary Reason for Your Visit: Localized moderate ulcerative colitis. Attending Provider: Jerome Bennett Primary Care Provider: Ren Arce Consulting Providers: Teo Abraham Discharge Orders/Prescriptions Prescriptions: New hydrocortisone 100 mg/60 mL Enema 100 mg GA BID 28 Days Qty: 3360 0RF prednisone 20 mg tablet 40 mg PO DAILY 14 Days Qty: 28 0RF hydrocodone-acetaminophen 5-325 mg tablet 1 tab PO Q8H PRN (Reason: pain) 7 Days Qty: 7 0RF omeprazole 40 mg capsule,delayed release(DR/EC) 40 mg PO DAILY 30 Days Qty: 30 0RF Continued bupropion HCl 300 MG tablet extended release 24 hr 300 mg PO DAILY metformin 500 mg tablet extended release 24 hr 2,000 mg PO DAILY lisinopril 2.5 mg tablet 10 mg PO DAILY Trulicity 4.5 mg/0.5 mL pen injector 4.5 mg SUBCUT .week Patient Comments: [NO ORIGINAL SIG] Referrals / Follow Up: Francisco Perea DO [Med Staff - Active Staff] - Within 1 Month Ren Arce MD [Primary Care Provider] - In 1 Week Cintia Vance PA [Med Staff - Adv Practice Prof] - Within 2 Weeks Disposition Disposition (needs filled in before D/C Order can be placed): Home, Self Care
--- NOTE | 2024-06-26 09:26 | DS.PCM_ITS ---
Providers Date of Admission: 06/24/24 Date of Discharge: 06/26/24 Primary Care Physician: Dr. Ren Arce MD Consultations 06/24/24 00:51 Consult: Gastroenterology Routine Consulting Provider: [facility] Reason for Consult: c scop EMERGENT Consult: No MD Notified: Yes Date Notified: 06/24/24 Time Notified: 05:58 Method of Notification: Text Reason For Visit: ABDOMINAL PAIN WITH LGIB AND BRBPR Diagnosis Discharge Diagnosis (1) LGI bleed: Status: Acute Code(s): K92.2 - Gastrointestinal hemorrhage, unspecified (2) BRBPR (bright red blood per rectum): Status: Acute Code(s): K62.5 - Hemorrhage of anus and rectum (3) Lactic acidosis: Status: Acute Code(s): E87.20 - Acidosis, unspecified (4) Adverse drug reaction: Status: Acute Code(s): T50.905A - Adverse effect of unspecified drugs, medicaments and biological substances, initial encounter Qualifiers: Encounter type: initial encounter Qualified Code(s): T50.905A - Adverse effect of unspecified drugs, medicaments and biological substances, initial encounter (5) History of colon polyps: Status: Acute Code(s): Z86.0100 - Personal history of colon polyps, unspecified (6) Morbid obesity with BMI of 50.0-59.9, adult: Status: Acute Code(s): E66.01 - Morbid (severe) obesity due to excess calories; Z68.43 - Body mass index [BMI] 50.0-59.9, adult (7) Diabetes mellitus type 2, noninsulin dependent: Status: Acute Code(s): E11.9 - Type 2 diabetes mellitus without complications (8) HTN (hypertension): Status: Chronic Code(s): I10 - Essential (primary) hypertension Qualifiers: Hypertension type: unspecified Qualified Code(s): I10 - Essential (primary) hypertension Plan 48-year-old gentleman was admitted with LLQ abdominal pain for last couple weeks along with bright red rectal blood. History of diverticulitis 1. LGIB with BRBPR and abdominal pain probably due to diverticulosis and diverticulitis or other probability ischemic colitis- Admit to general medical floor. Type and screen blood and transfuse for hemoglobin less than 7 g/dL. Check iron studies and ferritin. Continue pantoprazole IV infusion. Give acetaminophen as needed for [id number] (level 1-5/10) pain or fever. Give morphine IV as needed for severe (level 6-10/10) pain. Finally, we will consult Dr. Perea of gastroenterology to see this patient on rounds in the a.m. for further recommendations regarding colonoscopy this admission with help appreciated in advance. 06/24: Although CT abdomen with IV contrast individually reviewed and reported with no significant diverticulitis but clinically it seems patient has diverticulitis with left lower quadrant abdominal pain and tenderness. Started on IV Unasyn. Plan for colonoscopy tomorrow 06/25: Discussed with Dr. Perea. Plan for colonoscopy today. Continue antibiotic. Normal white count. Other possibility might have an ischemic colitis. Infectious colitis less likely as patient does not have fever, inflammation/thickening of colon or leukocytosis. Usually, lower GI bleed is less obvious infectious colitis 06/26: Patient had colonoscopy on 06/25. Findings admission below Impressions : - Ulcerative colitis. Inflammation was found from the anus to the rectum. This was moderate in severity, new compared to previous examinations. Biopsied. - Two 5 mm polyps in the sigmoid colon, removed with a cold biopsy forceps. Resected and retrieved. - Two 1 to 2 mm polyps in the transverse colon and in the ascending colon, removed with a hot snare. Resected and retrieved. - The examined portion of the ileum was normal. Biopsied. Recommendations : - Discharge patient to home. - Resume regular diet. - Continue present medications. - Await pathology results. - Repeat colonoscopy for surveillance. - rectal hydrocortisone twice daily x 4 weeks - Prednisone 40mg daily until he follows up in the clinic Patient advised to follow-up in GI office in 2 weeks. Prescription given prednisone 40 mg daily for 2 weeks, hydrocortisone enema, omeprazole and [place] for pain. OARRS reviewed. Patient had only 1 prescription in the past. Unintentional overdose risk average. 2. Lactic Acidosis of 2.3 mmol/L present on admission: Repeat lactic acid normal. Blood pressure 122/56. 3. Colonoscopy in 2020 showed polyps and hemorrhagic nodules varicosed in the rectum with history of recurrent colitis and diverticulitis. 4. Morbid Obesity; with BMI of 51.7 KG per square meter 5. DM-2: A1c 8.1%. Accu-Chek before meals and at bedtime with Humalog sliding scale coverage and hypoglycemia protocol. 06/25: On metformin and Trulicity. Follow-up with PCP 6. Essential hypertension; on lisinopril - Hold lisinopril while NPO. Give hydralazine IV as needed for systolic blood pressure greater than 160 mmHg. 7. Depression; on bupropion - Resume bupropion as previous after colonoscopy. 8. GERD; on omeprazole - Patient started on IV pantoprazole 9. Positive family history of colitis in his father 10. DVT prophylaxis - SCD's. Pharmacological prophylaxis contraindicated Clinical Impression(s) from Imaging Studies Abdomen/Pelvis CT 06/23/24 18:50 IMPRESSION: No acute process. Medications at Discharge Home Medications bupropion HCl 300 mg 24 hr tablet, extended release 300 mg PO DAILY 04/26/20 lisinopril 2.5 mg tablet 10 mg PO DAILY htn 12/20/22 metformin 500 mg tablet,extended release 24 hr 2,000 mg PO DAILY 12/20/22 dulaglutide 4.5 mg/0.5 mL subcutaneous pen injector (Trulicity) 4.5 mg subcut .week dm 06/23/24 hydrocodone-acetaminophen 5-325mg 5mg-325mg 1 tab PO Q8H PRN pain 1 week #7 tabs 06/26/24 hydrocortisone 100 mg/60 mL enema 100 mg (60 mL) [place] BID 4 weeks #3,360 mL 06/26/24 omeprazole 40 mg capsule,delayed release 40 mg PO DAILY 1 month #30 caps 06/26/24 prednisone 20 mg tablet 40 mg (2 x 20 mg) PO DAILY 2 weeks #28 tabs 06/26/24 Physical Exam Narrative Seen and examined. Still complains of mild LLQ pain. Colonoscopy finding explained to the patient. No fever. Physical exam General: Alert, Oriented x3, Cooperative. Morbid obesity BMI 50.9 kg/m? HEENT: Atraumatic, PERRLA, EOMI, Normocephalic Oral: No Gingival or Mucosal Lesions/ Ulcerations Neck: Supple, No JVD, Negative Carotid Bruits Chest wall/Lungs: Air entry diminished in bilateral lung bases. No crepitation/rhonchi Cardiovascular: Regular rate, Regular Rhythm, Normal S1, Normal S2, No M/G/R Abdomen: Bowel Sounds Present, Soft, mild localized tenderness in left lower quadrant. Non-Distended : No dysuria. No renal angle tenderness. No suprapubic tenderness. Extremities: No edema, Capillary Refill Less than 3 Seconds Skin: No rashes, No breakdown Musculoskeletal: No Tenderness to Palpation of Joints or Extremities Neurological: Cranial nerves II-XII grossly intact, DTR 2+/4. No acute focal neurological deficit. Psych/Mental Status: Normal Affect, Appropriate. Weight / BMI Weight Weight: 325 lb Body Mass Index (BMI) 50.8 ABG / Lab / Microbiology Data 06/26/24 06:07 06/26/24 06:07 Laboratory: Laboratory Results - last 24 hr 06/25/24 11:51: POC Glucose 129 H 06/25/24 17:09: POC Glucose 104 06/26/24 00:04: POC Glucose 384 H 06/26/24 06:07: WBC 10.4, RBC 5.16, Hgb 15.2, Hct 43.1, MCV 83.5, MCH 29.5, MCHC 35.3, RDW Std Deviation 36.8, RDW Coeff of José Manuel 12.0, Plt Count 215, MPV 9.2, Immature Gran % (Auto) 0.700, Neut % (Auto) 86.9 H, Lymph % (Auto) 9.0 L, [place] % (Auto) 3.2, Eos % (Auto) 0.0, Baso % (Auto) 0.2, Absolute Neuts (auto) 9.0 H, Absolute Lymphs (auto) 0.94, Nucleated RBC % 0, Sodium 136, Potassium 4.2, Chloride 103, Carbon Dioxide 20.7 L, Anion Gap 12, BUN 10, Creatinine 0.84, Estim Creat Clear Calc 148.40, Est GFR (MDRD) Non-Af 107, BUN/Creatinine Ratio 11.6, Glucose 246 H, Calcium 9.4 06/26/24 06:38: POC Glucose 238 H Microbiology: Microbiology 06/24/24 14:58 Stool Stool Occult Blood (RUBENS) - Final Occult Blood Positive 06/23/24 20:35 Stool Stool Occult Blood (RUBENS) - Final Occult Blood Positive D/C Instructions DC O2, CPAP, BIPAP Needs Home O2 Discharge instructions: No Meaningful Use Info Meaningful Use Meaningful Use Diagnoses (Choose all that apply): None applicable Ischemic Stroke Statin Dosing Therapy Reference: STATIN DOSE THERAPY REFERENCE: * Patients > 75 years receive moderate or high dose statin therapy. * Patients 75 years or YOUNGER should receive HIGH intensity statin dose unless contraindicated. You will be required to document reason for non-treatment if statin daily dose does not meet guidelines. HIGH DOSE STATIN THERAPY DAILY Atorvastatin > than or = to 40 mg Rosuvastatin > than or = to 20 mg Amlodipine + Atorvastatin > than or = to 2.5/40 mg Ezetimibe + Simvastatin 10/80 mg Simvastatin 80mg Discharge Plan Admission Admit Date/Time: 06/24/24 00:45 Primary Reason for Your Visit: Localized moderate ulcerative colitis. Attending Provider: Jerome Bennett Primary Care Provider: Ren Arce Consulting Providers: Teo Abraham Discharge Orders/Prescriptions Prescriptions: New hydrocortisone 100 mg/60 mL Enema 100 mg MI BID 28 Days Qty: 3360 0RF prednisone 20 mg tablet 40 mg PO DAILY 14 Days Qty: 28 0RF hydrocodone-acetaminophen 5-325 mg tablet 1 tab PO Q8H PRN (Reason: pain) 7 Days Qty: 7 0RF omeprazole 40 mg capsule,delayed release(DR/EC) 40 mg PO DAILY 30 Days Qty: 30 0RF Continued bupropion HCl 300 MG tablet extended release 24 hr 300 mg PO DAILY metformin 500 mg tablet extended release 24 hr 2,000 mg PO DAILY lisinopril 2.5 mg tablet 10 mg PO DAILY Trulicity 4.5 mg/0.5 mL pen injector 4.5 mg SUBCUT .week Patient Comments: [NO ORIGINAL SIG] Referrals / Follow Up: Francisco Perea DO [Med Staff - Active Staff] - Within 1 Month Ren Arce MD [Primary Care Provider] - In 1 Week Cintia Vance PA [Med Staff - Adv Practice Prof] - Within 2 Weeks Disposition Disposition (needs filled in before D/C Order can be placed): Home, Self Care Charges/Coding Visit Charges Inpatient E&M: 83701 Disch Hosp >30min
== END 2024-06-26 10:07 | disposition home or self-care (01) | DRG 245 ==
LOC: ED 17:56 → MS3 06-24 01:02
PROVIDERS: Anesthesiology; Internal Medicine Gastroenterology; Admitting Provider Internal Medicine; Emergency Provider Surgery; PCP Family Medicine; Visit Provider Internal Medicine
PROC: 0DJD8ZZ Inspection of Lower Intestinal Tract, Via Natural or Artificial Opening Endoscopic (ICD-10-PCS; CPT 45378; principal; 2024-06-25 14:25)
DX: K51.80 Other ulcerative colitis without complications (principal); Z68.43 Body mass index [BMI] 50.0-59.9, adult; E66.01 Morbid (severe) obesity due to excess calories; E11.65 Type 2 diabetes mellitus with hyperglycemia; E87.21 Acute metabolic acidosis; I10 Essential (primary) hypertension; F32.A Depression, unspecified; K21.9 Gastro-esophageal reflux disease without esophagitis; D12.3 Benign neoplasm of transverse colon; D12.5 Benign neoplasm of sigmoid colon; T38.3X5A Adverse effect of insulin and oral hypoglycemic [antidiabetic] drugs, initial encounter; Z79.84 Long term (current) use of oral hypoglycemic drugs; Z79.85 Long-term (current) use of injectable non-insulin antidiabetic drugs; Z79.899 Other long term (current) drug therapy; Z86.0100 Personal history of colon polyps, unspecified; Z83.79 Family history of other diseases of the digestive system
CPT/HCPCS: 45385; 45380; 36415; 74177; 80048; 80053; 81001; 82274; 82962; 83036; 83605; 83690; 83735; 84100; 84156; 85025; 86850; 86900; 86901; 88305; 93005; 96361; 96365; 96366; 96367; 96372; 96375; 96376; 99221; 99284; Q9967; A4216; G0378; J0295; J2405

== ENCOUNTER → 2024-07-07 | Outpatient (CLI) | payer MEDICAID, SELFPAY ==
[2024-07-07 09:54] LABS: Erythrocyte Sedimentation Rate 3 mm/hr (0-20)
[2024-07-07 10:32] LABS: CRP < 3.00 mg/L (0.0-3.0)
[2024-07-09 08:08] LABS: Calprotectin, Stool 242 ug/g (0-120)
== END | disposition home or self-care (01) ==
PROVIDERS: PCP Family Medicine; Referring Provider Student in an Organized Health Care Education/Training Program; Visit Provider Student in an Organized Health Care Education/Training Program
DX: K51.90 Ulcerative colitis, unspecified, without complications (principal)
CPT/HCPCS: 36415; 83993; 85652; 86140

== ENCOUNTER 2024-12-14 19:18 | Emergency (ER) | payer OTHER, MEDICAID, SELFPAY ==
[2024-12-14 19:18] VITALS: BP 147/75; PULSE 93; RESP 18; TEMP 36.6; O2SAT 99; BMI 52.4
--- NOTE | 2024-12-14 19:52 | RAD_ITS ---
PROCEDURE: ANKLE MIN 3 VIEWS 12/14/2024 REASON FOR EXAM: PAIN/INJURY TECHNIQUE: Procedure Code: RADANK Modality: DX Procedure: ANKLE MIN 3 VIEWS Laterality: Left COMPARISON: None FINDINGS: There is soft tissue swelling around the ankle as well as widening of the medial clear space to 4.6 mm. This can be seen with a deltoid ligament injury. There are corticated fragments adjacent to the medial malleolus which I suspect reflect old trauma. An Achilles enthesophyte is noted. No radiopaque foreign body. The ankle joint itself is intact. RAD/Ankle min 3 Views IMPRESSION: I do not see definite evidence of acute fracture. There is widening of the med ial clear space which can be seen with ligamentous injury. MRI may provide additional information. Reading Location: [facility]
--- NOTE | 2024-12-14 19:52 | EDS_ITS ---
HPI History of Present Illness Chief Complaint: Lower Extremity Injury Informant: patient Narrative Narrative: Patient is a 49-year-old male with a history of DM presenting with left Achilles pain and swelling. - Reports onset of symptoms 2-3 days ago while walking up a non-functioning escalator in [place]; felt a pop in the left Achilles area. - Initially thought it was similar to usual joint cracking, but the next day, experienced severe pain and inability to walk. - Pain is localized to the posterior aspect of the ankle, with associated swelling; denies pain in the anterior ankle. - Describes intermittent numbness in the toes, which has since improved; denies current prickly sensation in toes. - Pain worsens with palpation of the Achilles tendon, less severe with plantar flexion. - Applied Biofreeze with minimal relief. - Recently completed a course of oral antibiotics for balanitis; unable to recall the specific medication name, thinks probably metronidazole. No other antibiotic. - Denies other recent illnesses or symptoms. [facility] Medical History Diabetes mellitus type 2, noninsulin dependent Depression HTN (hypertension) Diabetes Medical History no medical history Home Medications ?Medication ?Instructions ?Recorded ?Last Taken ?Type bupropion HCl 300 mg 24 hr tablet, 300 mg PO DAILY Unknown History extended release lisinopril 2.5 mg tablet 10 mg PO DAILY htn 12/20/22 Unknown History metformin 500 mg tablet,extended 2,000 mg PO DAILY Unknown History release 24 hr dulaglutide 4.5 mg/0.5 mL 4.5 mg subcut .week dm 06/2306/19/24 History subcutaneous pen injector (Trulicity) hydrocortisone 100 mg/60 mL enema 100 mg (60 mL) IL BI D 4 weeks 06/26/24 Unknown Rx #3,360 mL omeprazole 40 mg capsule,delayed 40 mg PO DAILY 1 eliana h #30 caps 06/26/24 Unknown Rx release prednisone 20 mg tablet 40 mg (2 x 20 mg) PO DAILY 2 weeks 06/26/24 Unknown Rx #28 tabs hydrocortisone acetate 25 mg 25 mg IL QHS #21 ea 07/13 Unknown Rx rectal suppository hydrocodone-acetaminophen 5-325mg 1 tab PO Q6H PRN macy n 3 days #10 12/14/24 Unknown Rx 5mg-325mg tabs Allergy/AdvReac Type Severity Reaction Status Date / Time venom-honey bee Allergy Severe Anaphylaxis Verified 12/14/24 19:20
--- NOTE | 2024-12-14 19:52 | ED.VIS.LOWEX ---
HPI History of Present Illness Chief Complaint: Lower Extremity Injury Informant: patient Narrative Narrative: Patient is a 49-year-old male with a history of DM presenting with left Achilles pain and swelling. - Reports onset of symptoms 2-3 days ago while walking up a non-functioning escalator in [place]; felt a pop in the left Achilles area. - Initially thought it was similar to usual joint cracking, but the next day, experienced severe pain and inability to walk. - Pain is localized to the posterior aspect of the ankle, with associated swelling; denies pain in the anterior ankle. - Describes intermittent numbness in the toes, which has since improved; denies current prickly sensation in toes. - Pain worsens with palpation of the Achilles tendon, less severe with plantar flexion. - Applied Biofreeze with minimal relief. - Recently completed a course of oral antibiotics for balanitis; unable to recall the specific medication name, thinks probably metronidazole. No other antibiotic. - Denies other recent illnesses or symptoms. [facility] Medical History Diabetes mellitus type 2, noninsulin dependent Depression HTN (hypertension) Diabetes Medical History no medical history Home Medications ?Medication ?Instructions ?Recorded ?Last Taken ?Type bupropion HCl 300 mg 24 hr tablet, 300 mg PO DAILY 04/26/20 Unknown History extended release lisinopril 2.5 mg tablet 10 mg PO DAILY htn 12/20/22 Unknown History metformin 500 mg tablet,extended 2,000 mg PO DAILY 12/20/22 Unknown History release 24 hr dulaglutide 4.5 mg/0.5 mL 4.5 mg subcut .week dm 06/23/24 06/19/24 History subcutaneous pen injector (Trulicity) hydrocortisone 100 mg/60 mL enema 100 mg (60 mL) ND BID 4 weeks 06/26/24 Unknown Rx #3,360 mL omeprazole 40 mg capsule,delayed 40 mg PO DAILY 1 month #30 caps 06/26/24 Unknown Rx release prednisone 20 mg tablet 40 mg (2 x 20 mg) PO DAILY 2 weeks 06/26/24 Unknown Rx #28 tabs hydrocortisone acetate 25 mg 25 mg ND QHS #21 ea 07/13/24 Unknown Rx rectal suppository hydrocodone-acetaminophen 5-325mg 1 tab PO Q6H PRN pain 3 days #10 12/14/24 Unknown Rx 5mg-325mg tabs Allergy/AdvReac Type Severity Reaction Status Date / Time venom-honey bee Allergy Severe Anaphylaxis Verified 12/14/24 19:20 ketorolac tromethamine (From AdvReac Other Verified 12/14/24 19:20 Toradol) Family History Father Diabetes Surgical History no surgical history Social History household members: significant other and children current occupational status: employed Smoking Status: Never smoker ROS ROS ED Constitutional Constitutional ED: Denies chills or fever(s) Eyes Eyes: Denies change in vision Cardiovascular Cardiovascular: Denies chest pain Respiratory/Chest Respiratory/Chest: Denies dyspnea Gastrointestinal Gastrointestinal: Denies abdominal pain, nausea or vomiting Musculoskeletal Musculoskeletal: Reports extremity pain; Denies back pain or neck pain Integumentary Denies Abrasions, rash or wounds Neurologic Neurologic: Reports paresthesias LLE (1 or 2 days ago in foot but gone since.); Denies weakness EXAM Physical Exam Const Vital Signs: 12/14/24 19:18 Temperature 97.8 F Temperature Source Oral Pulse Rate 93 Respiratory Rate 18 Blood Pressure 147/75 H Blood Pressure Mean 99 Pulse Ox 99 Oxygen Delivery Method Room Air Positive well nourished, well developed and obese General Appearance ED: well developed and NAD Nutritional Appearance: obese Eyes PERRL Neck full ROM and supple Resp normal respiratory effort Back/Spine normal ROM and normal to inspection Extremity Extremity Narrative: Limited range of motion left ankle due to pain. Significantly tender at the Achilles where there is no erythema, there is some generalized swelling to the ankle but no bony malleoli or tenderness, and there is some erythema where there is swelling medially and laterally left ankle, but these areas are nontender impaired with the Achilles. Having the patient lie prone with his knee flexed and his left foot in the air, he has a normal response to Luciano test with result being involuntary plantarflexion of the foot. Neuro oriented x3, no focal motor deficits and no sensory deficits noted Sensorium / Orientation: alert Psych mental status grossly normal and thought process normal Skin no wounds Rashes: no rashes MDM MDM MDM Narrative Medical decision making narrative: Assessment: The patient is a 49-year-old male with PMH of diabetes mellitus presenting for acute left posterior ankle pain, swelling, and inability to bear weight after feeling a ?pop? while walking up a non-moving escalator 2?3 days ago. Normal Luciano test indicates the Achilles tendon remains functionally intact, arguing against complete rupture. Left ankle x-rays interpreted as showing no acute fractures, only chronic medial malleolus changes. Lateral and medial erythema are non-tender, making cellulitis unlikely. Clinical picture most consistent with an incomplete (partial) strain of the left Achilles tendon. Plan: - Applied short-leg splint in slight plantar flexion - Provided crutches for [id number] ambulation - Dispensed pain medication (unspecified) in ED - Outpatient follow-up arranged with orthopedics - Discharged home after instruction on splint care and signs of worsening Diagnostics: - Left ankle x-rays: no acute fracture; chronic medial malleolus findings Radiography Diagnostic Testing: Clinical Impression(s) from Imaging Studies Ankle X-Ray 12/14/24 19:52 IMPRESSION: I do not see definite evidence of acute fracture. There is widening of the medial clear space which can be seen with ligamentous injury. MRI may provide additional information. Reading Location: [facility] Three-view x-ray series of the left ankle and my interpretation shows no acute fractures but he does appear to have some chronic abnormalities at the medial malleolus. No subcutaneous emphysema. Discharge Plan Triage Chief Complaint: Lower Extremity Injury ED Provider: Adin Lynch Dx/Rx/DC Orders Clinical Impression: Strain of left Achilles tendon, initial encounter, Unable to bear weight on left lower extremity Instructions: Splint Care, ED Tendon Rupture Achilles Prescriptions: Changed hydrocodone-acetaminophen 5-325 mg tablet 1 tab PO Q6H PRN (Reason: pain) 3 Days Qty: 10 0RF No Action bupropion HCl 300 MG tablet extended release 24 hr 300 mg PO DAILY metformin 500 mg tablet extended release 24 hr 2,000 mg PO DAILY lisinopril 2.5 mg tablet 10 mg PO DAILY Trulicity 4.5 mg/0.5 mL pen injector 4.5 mg SUBCUT .week Patient Comments: [NO ORIGINAL SIG] hydrocortisone 100 mg/60 mL Enema 100 mg ND BID 28 Days Qty: 3360 0RF prednisone 20 mg tablet 40 mg PO DAILY 14 Days Qty: 28 0RF omeprazole 40 mg capsule,delayed release(DR/EC) 40 mg PO DAILY 30 Days Qty: 30 0RF hydrocortisone acetate 25 mg suppository 25 mg ND QHS Qty: 21 0RF Rx Instructions: QHS for 21 days. Primary Care Provider: Ren Arce Referrals: Aidan Marrero MD [Med Staff - Active Staff, Orthopedics] - As soon as possible Activity Restrictions/Additional Instructions: - X-ray of your left ankle was done and showed no new fractures or acute bony injury. - Your left foot was placed in a short-leg splint with the foot held slightly pointed down (plantarflexed) to rest your Achilles; keep the splint on as instructed. - Use crutches to avoid putting any weight on your left foot when moving around. Be aware that without crutches, your toes are splinted pointing down and will be a trip/fall hazard. - Take the prescribed pain medication as directed to manage your discomfort. - Arrange and attend an outpatient appointment with an senior label specialist for further evaluation and management of your Achilles injury. Print Language: Greek Disposition Disposition: Home, Self Care
[2024-12-14] MEDS: HYDROcodone Bitartrate/Apap 5/325 Tablet PO (20:24)
[2024-12-14 21:27] VITALS: BP 138/77; PULSE 89; RESP 16; TEMP 36.6; O2SAT 97
== END 2024-12-14 21:31 | disposition home or self-care (01) ==
PROVIDERS: Emergency Provider Emergency Medicine; PCP Family Medicine; Visit Provider Emergency Medicine
DX: S86.012A Strain of left Achilles tendon, initial encounter (principal); E11.9 Type 2 diabetes mellitus without complications; X58.XXXA Exposure to other specified factors, initial encounter; Y93.01 Activity, walking, marching and hiking; I10 Essential (primary) hypertension; R26.2 Difficulty in walking, not elsewhere classified; Z79.84 Long term (current) use of oral hypoglycemic drugs; Z79.85 Long-term (current) use of injectable non-insulin antidiabetic drugs
CPT/HCPCS: 73610; 99283

== ENCOUNTER → 2024-12-27 | Outpatient (CLI) | payer OTHER, MEDICAID, SELFPAY | END | disposition home or self-care (01) | PROVIDERS: PCP Family Medicine | DX: M79.662 Pain in left lower leg (principal) | CPT/HCPCS: 73721 ==